=== PATIENT | male | born 1935 | race Caucasian/White ===

== ENCOUNTER → 2016-07-14 | Outpatient (CLI) | payer BC ==
[~2016-07-14] MED LIST: ACET-749 PO; ALPR0.25 PO; AMLO-114 PO; ASPEC81 PO; CHOL100010 PO; EFF/375 PO; FERR18TA2 PO; MOML PO; MULT-845 PO; PRLSR20 PO; TAMS0.4C59 PO; WARF1TAB PO
--- NOTE | 2016-07-14 14:40 | DIAGNOSTIC IMAGING REPORT ---
ANKLE BRACHIAL INDEX LIMITED CLINICAL HISTORY: LEG CRAMPING possible claudication COMPARISON STUDY: No previous studies for comparison. FINDINGS: Brachial arm systolic pressures are 174 mmHg in the right and 145 mmHg on the left. Posterior tibial pressures were 138 mm systolic on the right and 145 mm systolic on the left. Posterior tibial artery was noncompressible bilaterally. Digital pressures were 26 mmHg on the right and 27 mmHg on the left. IMPRESSION: 1. Ankle arm indices of 0.8 bilaterally 2. Diminished digital blood pressures of 26 mmHg on the right and 27 mmHg on the left Electronically signed by: Theo Milligan M.D. 07/14/2016 2:39 PM Dictated Date/Time: 07/14/2016 2:37 PM
== END | disposition home or self-care (01) ==
LOC: C.ULTR 13:02
PROVIDERS: ATTEND Internal Medicine
DX: R25.2 Cramp and spasm (principal)

== ENCOUNTER → 2016-08-08 | Outpatient (CLI) | payer BC ==
[2016-08-08 17:03] LABS: ALT/SGPT 25 U/L (12-78); AST/SGOT 16 U/L (15-37); BLOOD UREA NITROGEN 24 mg/dl (7-18); BUN/CREATININE RATIO 16.8 (10-20); CALCIUM 9.1 mg/dl (8.5-10.1); CARBON DIOXIDE 28 mmol/L (21-32); CHLORIDE 106 mmol/L (98-107); CHOLESTEROL 151 mg/dl (0-200); GLUCOSE 164 mg/dl (70-99); POTASSIUM 4.6 mmol/L (3.5-5.1); SODIUM 141 mmol/L (136-145); TRIGLYCERIDES 109 mg/dl (0-150); VERY LOW DENSITY LIPOPROT CALC 22 mg/dl
[2016-08-08 17:06] LABS: ALB/GLOB RATIO 1.3 (0.9-2); ALKALINE PHOSPHATASE 86 U/L (45-117); CHOLESTEROL/HDL RATIO 2.7; FERRITIN 336.4 ng/ml (8.0-388.0); HDL CHOLESTEROL 55 mg/dl; LDL CHOLESTEROL CALCULATED 74 mg/dl; TOTAL IRON BINDING CAPACITY 282 mcg/dl (250-450)
[2016-08-08 17:34] LABS: HEMATOCRIT 39.3 % (42-52); MEAN CELL VOLUME 100.5 fL (80-100); MEAN CORPUSCULAR HEMOGLOBIN 32.7 pg (25-34); MEAN CORPUSCULAR HGB CONC 32.6 g/dl (32-36); MEAN PLATELET VOLUME 12.2 fL (7.4-10.4); PLATELET COUNT 129 K/uL (130-400); RED BLOOD COUNT 3.91 M/uL (4.7-6.1); WHITE BLOOD COUNT 5.85 K/uL (4.8-10.8)
[2016-08-08 17:35] LABS: PLT ESTIMATE DECREASED
== END | disposition home or self-care (01) ==
LOC: C.LABBC 13:24
PROVIDERS: ATTEND Internal Medicine
DX: D50.9 Iron deficiency anemia, unspecified (principal); I10 Essential (primary) hypertension

== ENCOUNTER → 2017-08-28 | Outpatient (CLI) | payer BC ==
[2017-08-28 11:33] LABS: BASO % 0.2 %; BASO ABS # 0.01 K/uL (0-0.2); EOS % 2.1 %; EOS ABS # 0.12 K/uL (0-0.5); HEMATOCRIT 42.6 % (42-52); IG# 0.01 K/uL (0.00-0.02); LYMPH % 23.9 %; LYMPH ABS # 1.39 K/uL (1.2-3.4); MEAN CELL VOLUME 94.7 fL (80-100); MEAN CORPUSCULAR HEMOGLOBIN 33.3 pg (25-34); MEAN CORPUSCULAR HGB CONC 35.2 g/dl (32-36); MONO % 8.8 %; MONO ABS # 0.51 K/uL (0.11-0.59); NEUT % 64.8 %; NEUT ABS # 3.77 K/uL (1.4-6.5); PLATELET COUNT 149 K/uL (130-400); RED CELL DISTRIBUTION WIDTH CV 13.1 % (11.5-14.5); RED CELL DISTRIBUTION WIDTH SD 44.8 fL (36.4-46.3); WHITE BLOOD COUNT 5.81 K/uL (4.8-10.8)
[2017-08-28 12:10] LABS: ALBUMIN 3.6 gm/dl (3.4-5.0); ALKALINE PHOSPHATASE 91 U/L (45-117); ALT/SGPT 27 U/L (12-78); BLOOD UREA NITROGEN 22 mg/dl (7-18); CALCIUM 9.3 mg/dl (8.5-10.1); CARBON DIOXIDE 29 mmol/L (21-32); CHOLESTEROL 183 mg/dl (0-200); CREATININE 1.31 mg/dl (0.60-1.40); GLUCOSE 123 mg/dl (70-99); POTASSIUM 4.5 mmol/L (3.5-5.1); SODIUM 137 mmol/L (136-145)
[2017-08-28 12:15] LABS: AST/SGOT 18 U/L (15-37); LDL CHOLESTEROL CALCULATED 112 mg/dl; TOTAL PROTEIN 7.1 gm/dl (6.4-8.2)
== END | disposition home or self-care (01) ==
LOC: C.LABBC 07:59
PROVIDERS: ATTEND Internal Medicine
DX: I10 Essential (primary) hypertension (principal); D50.9 Iron deficiency anemia, unspecified; R73.9 Hyperglycemia, unspecified

== ENCOUNTER → 2017-08-30 | Outpatient (CLI) | payer BC ==
[2017-08-31 06:45] LABS: HEMOGLOBIN A1C 5.7 % (4.5-5.6)
== END | disposition home or self-care (01) ==
LOC: C.LABBFT 13:58
PROVIDERS: ATTEND Internal Medicine
DX: R73.9 Hyperglycemia, unspecified (principal)

== ENCOUNTER → 2017-09-01 | Outpatient (CLI) | payer BC ==
--- NOTE | 2017-09-01 13:27 | DIAGNOSTIC IMAGING REPORT ---
BILATERAL LOWER EXTREMITY ARTERIAL DOPPLER ULTRASOUND CLINICAL HISTORY: Peripheral artery disease. Claudication. COMPARISON STUDY: Bilateral ankle to brachial indices July 14, 2016. FINDINGS: Ankle to brachial indices could not be obtained due to noncompressibility of vessels. Abnormal waveforms are noted within the digits of each foot, more severe on the right. There is extensive atherosclerotic plaque within the right lower extremity and moderate plaque within the left lower extremity. Note is made of a markedly elevated peak systolic velocity of 498 cm/s within the right common femoral artery which represents a hemodynamically significant stenosis. There is an elevated peak systolic velocity of 254 cm/s within the proximal right superficial femoral artery which suggests an additional hemodynamically stiffness stenosis. Flow distal to the stenosis is markedly dampened and monophasic. There is dampened monophasic flow within the right popliteal, anterior tibial, posterior tibial and peroneal vessels. Elevated peak systolic velocity of 236 cm/second within the mid left superficial femoral artery suggests a hemodynamically significant stenosis. There is biphasic flow within left common femoral, superficial femoral and popliteal arteries with monophasic flow within the left anterior tibial, peroneal and dorsalis pedis vessels. The left posterior tibial artery was not visualized. IMPRESSION: 1. Extensive atherosclerotic plaque within the lower extremities, more severe on the right. Ankle to brachial indices could not be obtained due to noncompressibility of the vessels. Abnormal waveforms within the digits of each foot, more severe on the right. 2. Evidence for hemodynamically significant stenoses within the right common femoral artery and the bilateral superficial femoral arteries. 3. Markedly dampened, monophasic flow throughout the right lower extremity. Dampened, monophasic flow within the calf vessels of the left lower extremity with nonvisualization of flow with the left posterior tibial artery. Electronically signed by: Tom Barreto M.D. 09/01/2017 1:25 PM Dictated Date/Time: 09/01/2017 1:14 PM
== END | disposition home or self-care (01) ==
LOC: C.ULTR 11:53
PROVIDERS: ATTEND Internal Medicine
DX: I73.9 Peripheral vascular disease, unspecified (principal); R25.2 Cramp and spasm

== ENCOUNTER 2021-12-09 08:37 | Inpatient (IN) ==
--- NOTE | 2021-12-09 09:14 | Emergency Department Note ---
Impression & Plan CN III palsy, left eye, PVD (peripheral vascular disease), Diplopia, Thalamic stroke ED Provider Note NAME: IRAM CHOWDHURY AGE: 86 SEX: M : 1935 ARRIVES VIA: Walk-In INFORMANT: Patient, ED PROVIDER(S): Júnior Shay MD Chief Complaint: Double vision HPI: Patient presents due to concern for double vision. The patient states that he first noticed this on Monday. The patient does not have any history of prior TIA or stroke. Patient does have a remote history of A. fib currently anticoagulated on Eliquis has a pacemaker and does see Dr. Lopez. Patient states he is compliant with medications did take both his aspirin and Eliquis this morning. Patient denies any numbness tingling or focal weakness no slurred speech or facial droop. The patient does have some chronic ambulatory dysfunction after the patient did have vascular surgeries completed on his legs back in 2019. Patient denies any difficulty with breathing or swallowing. The patient does believe that his double vision is well horizontal diplopia and states he feels as though he can see out of his left eye better than his right. Patient relates that he believes he needs that his left eye is his dominant eye. The patient's gross vision is otherwise intact. No visual field deficits. ROS: See HPI for pertinent positives and negatives. A total of 10 systems were reviewed and otherwise negative. Past medical history: See below Surgical history: See below Social history: See below Physical Exam: GENERAL: Well appearing, well nourished, NAD, wearing glasses, wearing a mask, non-toxic. EYE EXAM: Normal conjunctiva. PERRL, no anisocoria, left eye with CN III palsy does not cross the midline when looking to the right and no reported visual field deficits NECK: Supple, no nuchal rigidity, no adenopathy, non-tender. No signs of meningismus. LUNGS: Clear to auscultation. Normal chest wall mechanics. HEART: NSR, ejection murmur noted. ABDOMEN: Abdomen soft, non-tender, normo-active bowel sounds, no masses, no rebo und or guarding. BACK: No CVA TTP. SKIN: No rashes and no bruising. UPPER EXTREMITIES: Upper extremities are grossly normal. LOWER EXTREMITIES: Grossly normal, no edema. NEURO EXAM: A&O x3, cranial nerves II-XII grossly intact with exception of left CN III, normal speech, moves all 4 extremities on command w/o issue. Good finger to nose, no drift, no sensory deficits. Differential diagnoses: Infection, dehydration, metabolic abnormality, hypo/hyperglycemia, electrolyte disturbance, anemia, hypoxia, cardiac sources, intracerebral event, toxicologic, neurologic, as well as other pathologies. Course: Patient was seen and evaluated the bedside. Full history physical exam was performed. EKG interpreted by me AV dual paced rhythm, rate of 70, prolonged TN and QRS Imaging Studies: See Below Cardiac monitoring: An order was placed for continuous cardiac monitoring. The monitor shows a rate of 72 with paced rhythm. MDM: Patient was seen due to concern for double vision the patient does have a left CN III palsy. Blood work was obtained along with CT head CT angiography of the head and neck. Patient is a normal white count H&H and platelet count. Kidney function is unremarkable with normal coags. BSG of 2 8 the patient is non-DKA. COVID-negative CT angiography of the head and neck showed mild to moderate areas of stenosis. No evidence of arterial occlusion dissection or aneurysm. CT head does show 9 mm hypodensity within the left internal capsule/anterior left thalamus. I did speak with Dr. Kramer who agreed with MRI if pacemaker compatible as well as echocardiogram. I did speak with the on-call hospitalist and patient was admitted by Dr. Blair. Patient is already on blood thinner, aspirin as well as statin medication Past Med/Surg History Medical History Anemia Atrial fibrillation ? BPH (benign prostatic hyperplasia) CAD (coronary artery disease) COPD with exacerbation Femoral artery stenosis, right Hearing deficit History of colon polyps Hyperlipidemia Hypertension Myocardial Infarction shown on an EKG, but never had symptom and had no idea he had it or when he had it On anticoagulant therapy eliquis PVD (peripheral vascular disease) Surgical History History of arthroscopy of left knee History of cataract surgery LEFT/RT History of colonoscopy History of endoscopic sinus surgery History of esophagogastroduodenoscopy (EGD) History of meniscectomy of left knee History of meniscectomy of right knee History of peripheral artery bypass right ileofemoral bypass graft with separate limbs to superficial and deep femoral arteries, [facility], Dr. Syed, 05/21/2018 History of strabismus surgery right History of tonsillectomy and adenoidectomy History of tooth extraction History of total left knee replacement (TKR) History of total right knee replacement (TKR) History of wisdom tooth extraction Status post femoral-popliteal bypass surgery (11/25/19) [facility], Dr Syed, femoral to above the knee popliteal bypass graft Family History Grandmother (Paternal) Family history of diabetes mellitus Father Family hx of colon cancer Colorectal cancer Myocardial infarction Prostate cancer Other No family history of adverse response to anesthesia Denies family history of Ovarian cancer Breast cancer Social History Smoking Status: Never smoker Tobacco Type: Cigarettes Second Hand Exposure: No; Do You Dip or Chew Tobacco: No; Tobacco Cessation Education Requested by Patient: No Hx Alcohol Use: Yes Alcohol type: hard liquor Hx Substance Use: No Preferred Language: Malawian Communication Ability: Effective Visual Impairment: Limited Hearing Ability: Use of Hearing Aid Street And Building Decorator Required: No Beliefs That Will Affect Care: None marital status: Current Living Situation: Spouse current occupational status: retired current occupation: Professor [employer] How many Children do You have: 2 Other Information That Helps Us Care for You: No Feels Safe at Home: Yes Safety Concerns: Feels Safe At This Time Childhood Exposure to Second-Hand Smoke: Yes caffeine: Yes (coffee in AM) during the past year weight has: remained stable Dental Care, Regularly: Yes Physical Activity Frequency: Daily Physical Activity Frequency Comment: 1 mile daily Seatbelt Use: always Sunscreen Use: Yes Assistive Devices: Glasses, Hearing Aid - Bilateral and Walker Allergies Allergies Allergy/AdvReac Type Severity Reaction Status Date / Time cilostazol AdvReac Mild increased Verified 11/05/21 14:29 heartrate Home Meds Home Medications Medication Instructions Recorded Confirmed apixaban 5 mg tablet (Eliquis) 5 mg PO BID 08/10/18 12/09/21 ferrous gluconate 324 mg (38 mg 324 mg PO QPM 08/10/18 12/09/21 iron) tablet amlodipine 5 mg tablet 5 mg PO DAILY 04/14/20 12/09/21 metoprolol succinate 50 mg 25 mg PO PM tab 11/05/21 12/09/21 tablet,extended release 24 hr rosuvastatin 5 mg tablet 5 mg PO HS 12/09/21 12/09/21 tamsulosin 0.4 mg capsule 0.4 mg PO HS 12/09/21 12/09/21 Previous Rx's Medication Instructions Recorded aspirin 81 mg tablet,delayed 81 mg PO DAILY #30 tab 12/03/19 release (Essence Low Dose Aspirin) cholecalciferol (vitamin D3) 25 25 mcg PO DAILY #30 tab 12/03/19 mcg (1,000 unit) tablet albuterol sulfate 90 mcg/actuation 2 puff INHALATION Q4 PRN #18 g 09/02/20 aerosol inhaler (ProAir HFA) losartan 25 mg tablet 25 mg PO DAILY #90 tab 05/25/21 budesonide-formoterol HFA 80 2 puff INHALATION BID #13.8 gm 10/11/21 mcg-4.5 mcg/actuation aerosol inhaler (Symbicort) omeprazole 20 mg capsule,delayed 20 mg PO DAILY #90 cap 11/11/21 release Results & Data (ED) Vital Signs Vital Signs - 24 hr 12/09/21 08:40 12/09/21 09:26 12/09/21 09:30 Temperature 36.5 C Temperature Source Oral Pulse Rate 70 Pulse Rate [Apical] 70 Pulse Rate from SpO2 Sensor Pulse Rhythm Regular Pulse Rhythm [Apical] Regular Pulse Strength Normal Pulse Strength [Apical] Normal Respiratory Rate 18 20 Respiratory Effort / Characteristics Non-Labored Spontaneous Non-Labored Spontaneous Respiratory Depth Normal Normal Respiratory Pattern Regular Regular Blood Pressure 201/95 H 163/101 H Blood Pressure [Left Arm] 207/86 H Blood Pressure Mean 130 121 Blood Pressure Mean [Left Arm] 126 Blood Pressure Position Sitting Blood Pressure Position [Left Arm] Sitting Pulse Oximetry 98 97 Oxygen Delivery Method Room Air Sepsis Recent Fever Within 48 Hours No Sepsis New/Unexplained Change in Mental Status No Sepsis Action Taken by Nursing No Action Required 12/09/21 09:32 12/09/21 09:40 12/09/21 10:00 Temperature Temperature Source Pulse Rate 86 70 70 Pulse Rate [Apical] Pulse Rate from SpO2 Sensor 70 70 Pulse Rhythm Regular Pulse Rhythm [Apical] Pulse Strength Pulse Strength [Apical] Respiratory Rate 20 22 20 Respiratory Effort / Characteristics Respiratory Depth Respiratory Pattern Blood Pressure Blood Pressure [Left Arm] Blood Pressure Mean Blood Pressure Mean [Left Arm] Blood Pressure Position Blood Pressure Position [Left Arm] Pulse Oximetry 97 98 96 Oxygen Delivery Method Room Air Sepsis Recent Fever Within 48 Hours Sepsis New/Unexplained Change in Mental Status Sepsis Action Taken by Nursing 12/09/21 10:01 12/09/21 11:00 12/09/21 11:14 Temperature Temperature Source Pulse Rate 70 Pulse Rate [Apical] 70 Pulse Rate from SpO2 Sensor 70 Pulse Rhythm Pulse Rhythm [Apical] Regular Pulse Strength Pulse Strength [Apical] Normal Respiratory Rate 12 18 Respiratory Effort / Characteristics Non-Labored Spontaneous Respiratory Depth Normal Respiratory Pattern Regular Blood Pressure 206/76 H 180/89 H Blood Pressure [Left Arm] 206/76 H Blood Pressure Mean 119 119 Blood Pressure Mean [Left Arm] 119 Blood Pressure Position Blood Pressure Position [Left Arm] Sitting Pulse Oximetry 97 97 Oxygen Delivery Method Room Air Sepsis Recent Fever Within 48 Hours Sepsis New/Unexplained Change in Mental Status Sepsis Action Taken by Nursing 12/09/21 11:30 12/09/21 12:00 12/09/21 12:05 Temperature Temperature Source Pulse Rate 70 70 70 Pulse Rate [Apical] Pulse Rate from SpO2 Sensor 70 Pulse Rhythm Pulse Rhythm [Apical] Pulse Strength Pulse Strength [Apical] Respiratory Rate 10 L 19 21 Respiratory Effort / Characteristics Respiratory Depth Respiratory Pattern Blood Pressure 191/83 H 232/110 H 224/104 H Blood Pressure [Left Arm] Blood Pressure Mean 119 150 144 Blood Pressure Mean [Left Arm] Blood Pressure Position Blood Pressure Position [Left Arm] Pulse Oximetry 96 Oxygen Delivery Method Sepsis Recent Fever Within 48 Hours Sepsis New/Unexplained Change in Mental Status Sepsis Action Taken by Jail Medications Current Medication List: was personally reviewed by me Laboratory Data Attestation: I reviewed the patient's lab results. Result diagrams: 12/09/21 09:09 12/09/21 09:09 Lab Results 12/09/21 12/09/21 12/09/21 Range/Units 09:09 09:09 09:09 WBC 5.14 (4.8-10.8) K/ul RBC 4.42 L (4.63-6.08) M/uL Hgb 14.3 (14.0-18.0) g/dl Hct 41.8 (40.1-51.0) % MCV 94.6 (80.0-100.0) fL MCH 32.4 (25.0-34.0) pg MCHC 34.2 (32.0-36.0) g/dL RDW Std Deviation 43.5 (36.4-46.3) fL RDW Coeff of Ching 12.6 (11.5-14.5) % Plt Count 136 (130-400) K/uL MPV 11.3 (9.4-12.4) fL Immature Gran % (Auto) 0.2 % Neut % (Auto) 72.3 % Lymph % (Auto) 15.9 % [place] % (Auto) 9.2 % Eos % (Auto) 2.2 % Baso % (Auto) 0.2 % Neut # (Auto) 3.69 (1.4-6.5) K/uL Lymph # (Auto) 0.81 L (1.2-3.4) K/uL [place] # (Auto) 0.47 (0.24-0.82) K/uL Eos # (Auto) 0.11 (0-0.50) K/uL Baso # (Auto) 0.01 (0-0.2) K/uL Immature Gran # (Auto) 0.01 (0.00-0.02) K/uL PT 11.5 (9.0-12.0) Seconds INR 1.1 (0.9-1.1) APTT 28.3 (21.0-31.0) Seconds PTT Ratio 1.0 Sodium 139 (136-145) mmol/L Potassium 4.5 (3.5-5.1) mmol/L Chloride 107 (98-107) mmol/L Carbon Dioxide 25 (21-32) mmol/L Anion Gap 7 (3-11) BUN 15 (6-23) mg/dl Creatinine 1.09 (0.6-1.4) mg/dl Est Cr Clr Drug Dosing 47.7 ml/min Est GFR ( Amer) 71.9 ml/min Est GFR (Non-Af Amer) 62.0 ml/min BUN/Creatinine Ratio 13.8 (10-20) Glucose 208 H (70-99(Fasting)) mg/dl Calcium 9.5 (8.5-10.1) mg/dl Magnesium 1.7 (1.7-2.4) mg/dl Total Bilirubin 0.6 (0.2-1.0) mg/dl AST 31 (13-39) U/L ALT 34 (7-52) U/L Alkaline Phosphatase 75 (34-104) U/L Troponin I High Sens (0-20) pg/ml Total Protein 6.6 (6.0-8.3) gm/dl Albumin 3.8 (3.4-5.0) gm/dl Globulin 2.8 (2.5-4.0) gm/dl Albumin/Globulin Ratio 1.4 (0.9-2) SARS-CoV-2, RNA, NAAT (NEGATIVE) 12/09/21 12/09/21 Range/Units 09:09 10:15 WBC (4.8-10.8) K/ul RBC (4.63-6.08) M/uL Hgb (14.0-18.0) g/dl Hct (40.1-51.0) % MCV (80.0-100.0) fL MCH (25.0-34.0) pg MCHC (32.0-36.0) g/dL RDW Std Deviation (36.4-46.3) fL RDW Coeff of Ching (11.5-14.5) % Plt Count (130-400) K/uL MPV (9.4-12.4) fL Immature Gran % (Auto) % Neut % (Auto) % Lymph % (Auto) % [place] % (Auto) % Eos % (Auto) % Baso % (Auto) % Neut # (Auto) (1.4-6.5) K/uL Lymph # (Auto) (1.2-3.4) K/uL [place] # (Auto) (0.24-0.82) K/uL Eos # (Auto) (0-0.50) K/uL Baso # (Auto) (0-0.2) K/uL Immature Gran # (Auto) (0.00-0.02) K/uL PT (9.0-12.0) Seconds INR (0.9-1.1) APTT (21.0-31.0) Seconds PTT Ratio Sodium (136-145) mmol/L Potassium (3.5-5.1) mmol/L Chloride (98-107) mmol/L Carbon Dioxide (21-32) mmol/L Anion Gap (3-11) BUN (6-23) mg/dl Creatinine (0.6-1.4) mg/dl Est Cr Clr Drug Dosing ml/min Est GFR ( Amer) ml/min Est GFR (Non-Af Amer) ml/min BUN/Creatinine Ratio (10-20) Glucose (70-99(Fasting)) mg/dl Calcium (8.5-10.1) mg/dl Magnesium (1.7-2.4) mg/dl Total Bilirubin (0.2-1.0) mg/dl AST (13-39) U/L ALT (7-52) U/L Alkaline Phosphatase (34-104) U/L Troponin I High Sens 9.6 (0-20) pg/ml Total Protein (6.0-8.3) gm/dl Albumin (3.4-5.0) gm/dl Globulin (2.5-4.0) gm/dl Albumin/Globulin Ratio (0.9-2) SARS-CoV-2, RNA, NAAT NEGATIVE (NEGATIVE) Administered Medications Discontinued Medications Ioversol (Optiray 320 125ml) 120 ml IV ONCE ONE Stop: 12/09/21 10:27 Last Admin: 12/09/21 10:26 Dose: 120 ml Documented by: [id number] Labetalol HCl (Labetalol Hcl Iv 5 Mg/Ml 20ml) 10 mg IV Q30M PRN PRN Reason: sBP >= 220, dBP >=120 Stop: 01/08/22 13:14 Last Admin: 12/09/21 13:34 Dose: 10 mg Documented by: [id number] Cosigned by: [id number] Imaging Data Radiologist's Impression: Chest X-Ray 12/09/21 09:29 XR chest 1V portable HISTORY: Stroke symptoms. COMPARISON: Chest 07/10/2013. FINDINGS: A few small linear density at the left lung base suggesting subsegmental atelectasis or scarring. Otherwise, lungs are clear. The heart is normal in size. No pleural effusions. No pneumothorax. Is left-sided dual- chamber pacemaker. Small left basilar nodular density favors a nipple shadow. IMPRESSION: No acute process. ACT 112: Negative or not required by law. Electronically signed by: Gaurang Dyson M.D. 12/09/2021 10:[address] 12/09/21 09:45 CT OF THE HEAD WITHOUT CONTRAST CLINICAL HISTORY: Stroke Like Symptoms COMPARISON STUDY: Head CT March 17, 2020. TECHNIQUE: Helical axial images of the head were obtained without IV contrast. Automated exposure control was utilized for the study. A dose lowering technique was utilized adhering to the principles of ALARA. FINDINGS: No acute intracranial hemorrhage, midline shift or mass effect is present. White matter hypodensity suggests small vessel disease. 9 mm hypodensity within the left internal capsule/anterior left thalamus is new since head CT of March 17, 2020. Otherwise, unchanged appearance of the brain. The ventricular system is unremarkable. The basal cisterns are patent. No extra- axial collections are present. There are no findings to suggest acute dural sinus thrombosis or acute territorial infarct. No significant calvarial abnormalities are present. Postoperative findings within the sinuses are noted. IMPRESSION: 1. No acute intracranial hemorrhage or mass effect. 2. 9 mm hypodensity within left internal capsule/anterior left thalamus. This suggests age indeterminate ischemia but is new since CT of March 17, 2020. Otherwise, no change in appearance of the brain. ACT 112: Negative or not required by law. Electronically signed by: Tom Barreto M.D. 12/09/2021 10:39 AM Head CTA 12/09/21 09:45 HEAD & NECK CTA HISTORY: Dizziness. Stroke Like Symptoms TECHNIQUE: Multiaxial CT images of the head were performed following the intravenous administration of contrast to evaluate the major cerebral vessels. Multiaxial CT images of the neck were also performed following the intravenous administration of contrast to evaluate the major cervical vessels. Maximum intensity projection images were also obtained. A dose lowering technique was utilized adhering to the principles of ALARA. COMPARISON: Head CT 03/17/2020. FINDINGS: There is no mass, hematoma, midline shift, or acute infarct. Moderate calcified plaque within the distal bilateral vertebral arteries and bilateral carotid siphons. This results in moderate stenosis of approximately 50% within the distal vertebral arteries and supraclinoid segments of the bilateral ICAs. There is mild multifocal narrowing within the basilar artery. Mild multifocal narrowing within the mid to distal left ELIGIBILITY COUNSELOR. The right ELIGIBILITY COUNSELOR is widely patent. Hypoplastic left A1 segment. However, no significant stenosis, occlusion, or aneurysm within the bilateral ACAs are MCAs. The major dural venous sinuses appear patent. The aortic arch and proximal great vessels are widely patent. There is moderate calcified plaque within the aortic arch and proximal great vessels. Mild to moderate focal narrowing within the takeoff of the right subclavian artery due to the calcified plaque. Moderate to severe stenosis at the takeoff of the bilateral vertebral arteries due to the calcified plaque. The remaining bilateral cervical vertebral arteries are widely patent. There is moderate to severe calcified plaque within the distal bilateral common carotid arteries, bilateral carotid bifurcations, and proximal bilateral internal carotid arteries. This results in 50% focal stenosis within the distal left common carotid artery. There is no central venous stenosis within the right common carotid artery. Approximately 30% focal stenosis within the proximal right internal carotid artery and up to 50% focal stenosis within the proximal left internal carotid artery due to the calcified plaque. Mild emphysema is noted. There is a left-sided pacemaker. Moderate degenerative changes within the cervical spine. IMPRESSION: 1. Mild to moderate areas of stenosis within the major cerebral and cervical arteries as described above. 2. However, no evidence for arterial occlusion, dissection, or aneurysm within the cerebral or cervical arteries. ACT 112: Negative or not required by law. Electronically signed by: Gaurang Dyson M.D. 12/09/2021 11:00 AM Neck CTA 12/09/21 09:45 HEAD & NECK CTA HISTORY: Dizziness. Stroke Like Symptoms TECHNIQUE: Multiaxial CT images of the head were performed following the intravenous administration of contrast to evaluate the major cerebral vessels. Multiaxial CT images of the neck were also performed following the intravenous administration of contrast to evaluate the major cervical vessels. Maximum intensity projection images were also obtained. A dose lowering technique was utilized adhering to the principles of ALARA. COMPARISON: Head CT 03/17/2020. FINDINGS: There is no mass, hematoma, midline shift, or acute infarct. Moderate calcified plaque within the distal bilateral vertebral arteries and bilateral carotid siphons. This results in moderate stenosis of approximately 50% within the distal vertebral arteries and supraclinoid segments of the bilateral ICAs. There is mild multifocal narrowing within the basilar artery. Mild multifocal narrowing within the mid to distal left ELIGIBILITY COUNSELOR. The right ELIGIBILITY COUNSELOR is widely patent. Hypoplastic left A1 segment. However, no significant stenosis, occlusion, or aneurysm within the bilateral ACAs are MCAs. The major dural venous sinuses appear patent. The aortic arch and proximal great vessels are widely patent. There is moderate calcified plaque within the aortic arch and proximal great vessels. Mild to moderate focal narrowing within the takeoff of the right subclavian artery due to the calcified plaque. Moderate to severe stenosis at the takeoff of the bilateral vertebral arteries due to the calcified plaque. The remaining bilateral cervical vertebral arteries are widely patent. There is moderate to severe calcified plaque within the distal bilateral common carotid arteries, bilateral carotid bifurcations, and proximal bilateral internal carotid ar teries. This results in 50% focal stenosis within the distal left common carotid artery. There is no central venous stenosis within the right common carotid artery. Approximately 30% focal stenosis within the proximal right internal carotid artery and up to 50% focal stenosis within the proximal left internal carotid artery due to the calcified plaque. Mild emphysema is noted. There is a left-sided pacemaker. Moderate degenerative changes within the cervical spine. IMPRESSION: 1. Mild to moderate areas of stenosis within the major cerebral and cervical a rteries as described above. 2. However, no evidence for arterial occlusion, dissection, or aneurysm within the cerebral or cervical arteries. ACT 112: Negative or not required by law. Electronically signed by: Gaurang Dyson M.D. 12/09/2021 11:00 AM Discharge Plan Visit Data Chief Complaint: Eye Problems Stated Complaint: DOUBLE VISION, R EYE PROBLEMS ED Provider: Júnior Shay Discharge Problem: CN III palsy, left eye, PVD (peripheral vascular disease), Diplopia, Thalamic stroke Patient Disposition: Admitted As Inpatient Discharge Instructions Interventions: ED Discharge Assessment Last Done: 12/09/21 14:44
[2021-12-09 09:58] LABS: Albumin Globulin Ratio 1.4 (0.9-2); Albumin Level 3.8 gm/dl (3.4-5.0); BUN Creatinine Ratio 13.8 (10-20); Bilirubin,Total 0.6 mg/dl (0.2-1.0); Calcium 9.5 mg/dl (8.5-10.1); Creatinine Clr Calc Pharmacy 47.7 ml/min; Est GFR (African American) 71.9 ml/min; Globulin 2.8 gm/dl (2.5-4.0); Magnesium 1.7 mg/dl (1.7-2.4); Potassium 4.5 mmol/L (3.5-5.1); Total Protein 6.6 gm/dl (6.0-8.3)
[2021-12-09 10:02] LABS: INR 1.1 (0.9-1.1); Partial Thromboplastin Time 28.3 Seconds (21.0-31.0); Prothrombin Time 11.5 Seconds (9.0-12.0)
[2021-12-09 10:17] LABS: Hematocrit (blood only) 41.8 % (40.1-51.0); Hemoglobin 14.3 g/dl (14.0-18.0); Mean Corpuscular Hemoglobin 32.4 pg (25.0-34.0); Mean Corpuscular Hgb Conc 34.2 g/dL (32.0-36.0); Mean Corpuscular Volume 94.6 fL (80.0-100.0); Mean Platelet Volume 11.3 fL (9.4-12.4); Platelet Count 136 K/uL (130-400); RDW Coefficient of Variation 12.6 % (11.5-14.5); RDW Standard Deviation 43.5 fL (36.4-46.3); Red Blood Count 4.42 M/uL (4.63-6.08); White Blood Count 5.14 K/ul (4.8-10.8)
--- NOTE | 2021-12-09 10:23 | XRay Report ---
XR chest 1V portable HISTORY: Stroke symptoms. COMPARISON: Chest 07/10/2013. FINDINGS: A few small linear density at the left lung base suggesting subsegmental atelectasis or sca rring. Otherwise, lungs are clear. The heart is normal in size. No pleural effusions. No pneumothorax . Is left-sided dual-chamber pacemaker. Small left basilar nodular density favors a nipple shadow. IMPRESSION: No acute process. ACT 112: Negative or not required by law. Electronically signed by: Gaurang Dyson M.D. 12/09/2021 10:22 AM
[2021-12-09] MEDS ORDERED: OPTIRAY 320 125ml IV ONE (10:26)
--- NOTE | 2021-12-09 10:41 | CT Scan Report ---
CT OF THE HEAD WITHOUT CONTRAST CLINICAL HISTORY: Stroke Like Symptoms COMPARISON STUDY: Head CT March 17, 2020. TECHNIQUE: Helical axial images of the head were obtained without IV contrast. Automated exposure con trol was utilized for the study. A dose lowering technique was utilized adhering to the principles o f ALARA. FINDINGS: No acute intracranial hemorrhage, midline shift or mass effect is present. White matter hyp odensity suggests small vessel disease. 9 mm hypodensity within the left internal capsule/anterior le ft thalamus is new since head CT of March 17, 2020. Otherwise, unchanged appearance of the brain. T he ventricular system is unremarkable. The basal cisterns are patent. No extra-axial collections are present. There are no findings to suggest acute dural sinus thrombosis or acute territorial infarct. No significant calvarial abnormalities are present. Postoperative findings within the sinuses are not ed. IMPRESSION: 1. No acute intracranial hemorrhage or mass effect. 2. 9 mm hypodensity within left internal capsule/anterior left thalamus. This suggests age indetermin ate ischemia but is new since CT of March 17, 2020. Otherwise, no change in appearance of the brain . ACT 112: Negative or not required by law. Electronically signed by: Tom Barreto M.D. 12/09/2021 10:39 AM
--- NOTE | 2021-12-09 11:01 | CT Scan Report ---
HEAD & NECK CTA HISTORY: Dizziness. Stroke Like Symptoms TECHNIQUE: Multiaxial CT images of the head were performed following the intravenous administration o f contrast to evaluate the major cerebral vessels. Multiaxial CT images of the neck were also perform ed following the intravenous administration of contrast to evaluate the major cervical vessels. Maxim um intensity projection images were also obtained. A dose lowering technique was utilized adhering to the principles of ALARA. COMPARISON: Head CT 03/17/2020. FINDINGS: There is no mass, hematoma, midline shift, or acute infarct. Moderate calcified plaque within the dis stuart bilateral vertebral arteries and bilateral carotid siphons. This results in moderate stenosis of approximately 50% within the distal vertebral arteries and supraclinoid segments of the bilateral ICA s. There is mild multifocal narrowing within the basilar artery. Mild multifocal narrowing within the mid to distal left LINE CAMERA OPERATOR. The right LINE CAMERA OPERATOR is widely patent. Hypoplastic left A1 segment. However, no sig nificant stenosis, occlusion, or aneurysm within the bilateral ACAs are MCAs. The major dural venous sinuses appear patent. The aortic arch and proximal great vessels are widely patent. There is moderate calcified plaque wi thin the aortic arch and proximal great vessels. Mild to moderate focal narrowing within the takeoff of the right subclavian artery due to the calcified plaque. Moderate to severe stenosis at the takeof f of the bilateral vertebral arteries due to the calcified plaque. The remaining bilateral cervical v ertebral arteries are widely patent. There is moderate to severe calcified plaque within the distal b ilateral common carotid arteries, bilateral carotid bifurcations, and proximal bilateral internal car otid arteries. This results in 50% focal stenosis within the distal left common carotid artery. There is no central venous stenosis within the right common carotid artery. Approximately 30% focal stenos is within the proximal right internal carotid artery and up to 50% focal stenosis within the proximal left internal carotid artery due to the calcified plaque. Mild emphysema is noted. There is a left-s ided pacemaker. Moderate degenerative changes within the cervical spine. IMPRESSION: 1. Mild to moderate areas of stenosis within the major cerebral and cervical arteries as described ab ove. 2. However, no evidence for arterial occlusion, dissection, or aneurysm within the cerebral or cervic al arteries. ACT 112: Negative or not required by law. Electronically signed by: Gaurang Dyson M.D. 12/09/2021 11:00 AM
[2021-12-09 11:32] LABS: Basophils # (auto) 0.01 K/uL (0-0.2); Basophils % (auto) 0.2 %; Eosinophils # (auto) 0.11 K/uL (0-0.50); Eosinophils % (auto) 2.2 %; Immature Granulocytes # (auto) 0.01 K/uL (0.00-0.02); Immature Granulocytes % (auto) 0.2 %; Lymphocytes # (auto) 0.81 K/uL (1.2-3.4); Lymphocytes % (auto) 15.9 %; Monocytes # (auto) 0.47 K/uL (0.24-0.82); Monocytes % (auto) 9.2 %; Neutrophils # (auto) 3.69 K/uL (1.4-6.5); Neutrophils % (auto) 72.3 %
--- NOTE | 2021-12-09 12:13 | History & Physical Report ---
Date of Service December 09, 2021 Assessment & Plan (1) Thalamic stroke: Plan: Mild left arm weakness and reduced co-ordination, left eye inward movement deficit Already taking ASA, Eliquis and rosuvastatin. Can increase rosuvastatin back to 20mg PO daily but given possible side effect of worsening ambulation 5mg may be the maximum he can end up taking BP maximum 232/103 in the ER. Will start Labetalol 10mg q30 mins for sBP >= 220 or dBP >=120 although given CVA 2 suspected 2 days ago suspect we can aim a little lower if persistently elevated one the loo. Stroke scale daily and PRN TTE Lipid panel and HbA1C with AM labs PT/OT/Speech evals Consult neurology - already under [facility] neurology (2) Diplopia: Plan: Secondary to thalamic stroke as above. Follow up with ophthalmology as outpatient (3) Hypertension: Plan: Given current hypertension with maximum BP 232/103 and 2 days out from CVA while taking his usual medications will continue all his usual medications at this stage. Continue amlodipine 5mg PO daily, metoprolol succinate 25mg PO HS and losartan 25mg PO daily Labetalol PRN as above (4) COPD (chronic obstructive pulmonary disease): Plan: Continue Symbicort 2 puffs BID or hospital formulary equivalent. He reports this is not well controlled at home and coughing frequently while also taking albuterol twice a day regularly although this is not acute. Advised to stop taking the albuterol regularly and will start on Spiriva. (5) Hypercholesteremia: Plan: Increase rosuvastatin to 20mg as above. (6) Moderate aortic stenosis: Plan: Monitored by Dr Ritchie (7) Peripheral artery disease: Plan: s/p right fem above the knee bypass 11/23/2019 Continue ASA, Eliquis and rosuvastatin as above (8) Paroxysmal atrial fibrillation: Plan: Currently in AV paced rhythm Continue Eliquis for anticoagulation Continue metoprolol for rate control - notably did very poorly with diltiazem in the past. Plan: VTE Prophylaxis - Eliquis Diet - heart healthy Disposition - admit to PCU Admission and Anticipated Discharge Date Admission Date: December 09, 2021 History of Present Illness Chief Complaint: Diplopia Primary Care Provider: VANCE Bill 86 year old male who presents to the ER with 2 days of double vision with associated vertigo. He comes in today because it was not getting better and his noticed his eyes going in opposite directions. 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 No weakness or change in sensation in all 4 extremities. No change in hearing (chronic hearing aids) or voice. He has known extensive vascular disease with femoral bypass in 2019. No known history of stroke or heart attack but has presumed coronary artery disease per his cardiology note. He takes Eliquis and aspirin and reportedly has been taking these without missing any doses. He used to take a higher dose rosuvastatin 5mg PO daily however this was reduced about a year ago down to 5mg due to fatigue in his legs while walking which appeared to help. In the ER CT head was concerning for 9mm hypodensity within the left internal capsule / anterior left thalamus which is age indeterminate but new since CT in 2019. He was referred to medicine for admission and ongoing management of stroke. BP maximum in the ER 232/103 - he denies any headache or worsening symptoms since 2 days ago. Allergies Allergy/AdvReac Type Severity Reaction Status Date / Time cilostazol AdvReac Mild increased Verified 11/05/21 14:29 heartrate Home Medications Medication Instructions Recorded Confirmed Type apixaban 5 mg tablet (Eliquis) 5 mg PO BID 08/10/18 12/09/21 History ferrous gluconate 324 mg (38 mg 324 mg PO QPM 08/10/18 12/09/21 History iron) tablet aspirin 81 mg tablet,delayed 81 mg PO DAILY #30 tab 12/03/19 12/09/21 Rx release (Essence Low Dose Aspirin) cholecalciferol (vitamin D3) 25 25 mcg PO DAILY #30 tab 12/03/19 12/09/21 Rx mcg (1,000 unit) tablet amlodipine 5 mg tablet 5 mg PO DAILY 04/14/20 12/09/21 History albuterol sulfate 90 mcg/actuation 2 puff INHALATION Q4 PRN #18 g 09/02/20 12/09/21 Rx aerosol inhaler (ProAir HFA) losartan 25 mg tablet 25 mg PO DAILY #90 tab 05/25/21 12/09/21 Rx budesonide-formoterol HFA 80 2 puff INHALATION BID #13.8 gm 10/11/21 12/09/21 Rx mcg-4.5 mcg/actuation aerosol inhaler (Symbicort) metoprolol succinate 50 mg 25 mg PO PM tab 11/05/21 12/09/21 History tablet,extended release 24 hr omeprazole 20 mg capsule,delayed 20 mg PO DAILY #90 cap 11/11/21 12/09/21 Rx release rosuvastatin 5 mg tablet 5 mg PO HS 12/09/21 12/09/21 History tamsulosin 0.4 mg capsule 0.4 mg PO HS 12/09/21 12/09/21 History Past Med/Surg History Medical History Anemia Atrial fibrillation ? BPH (benign prostatic hyperplasia) CAD (coronary artery disease) COPD with exacerbation Femoral artery stenosis, right Hearing deficit History of colon polyps Hyperlipidemia Hypertension Myocardial Infarction shown on an EKG, but never had symptom and had no idea he had it or when he had it On anticoagulant therapy eliquis PVD (peripheral vascular disease) Surgical History History of arthroscopy of left knee History of cataract surgery LEFT/RT History of colonoscopy History of endoscopic sinus surgery History of esophagogastroduodenoscopy (EGD) History of meniscectomy of left knee History of meniscectomy of right knee History of peripheral artery bypass right ileofemoral bypass graft with separate limbs to superficial and deep femoral arteries, [facility], Dr. Syed, 05/21/2018 History of strabismus surgery right History of tonsillectomy and adenoidectomy History of tooth extraction History of total left knee replacement (TKR) History of total right knee replacement (TKR) History of wisdom tooth extraction Status post femoral-popliteal bypass surgery (11/25/19) [facility], Dr Syed, femoral to above the knee popliteal bypass graft Family History Grandmother (Paternal) Family history of diabetes mellitus Father Family hx of colon cancer Colorectal cancer Myocardial infarction Prostate cancer Other No family history of adverse response to anesthesia Denies family history of Ovarian cancer Breast cancer Social History Smoking Status: Never smoker Tobacco Type: Cigarettes Second Hand Exposure: No; Do You Dip or Chew Tobacco: No; Tobacco Cessation Education Requested by Patient: No Hx Alcohol Use: Yes Alcohol type: hard liquor Hx Substance Use: No Preferred Language: Guamanian Communication Ability: Effective Visual Impairment: Limited Hearing Ability: Use of Hearing Aid Peoplesoft Functional Analyst Required: No Beliefs That Will Affect Care: None marital status: Current Living Situation: Spouse current occupational status: retired current occupation: Professor [employer] How many Children do You have: 2 Other Information That Helps Us Care for You: No Feels Safe at Home: Yes Safety Concerns: Feels Safe At This Time Childhood Exposure to Second-Hand Smoke: Yes caffeine: Yes (coffee in AM) during the past year weight has: remained stable Dental Care, Regularly: Yes Physical Activity Frequency: Daily Physical Activity Frequency Comment: 1 mile daily Seatbelt Use: always Sunscreen Use: Yes Assistive Devices: Glasses, Hearing Aid - Bilateral and Walker Review of Systems Review of Systems: All systems reviewed & are unremarkable except as noted in HPI & below Physical Exam Constitutional: WD/WN, vitals as above Eyes: PERRL; + EOM not intact Diplopia which resolves with unilateral vision on both sides. Diplopia worse on rightward gaze and left eye unable to move right laterally past midline, rests down and out. EOMI on left eye unilaterally. Neck: trachea midline, no thyromegaly Respiratory: normal respiratory effort, lungs clear to auscultation Cardiovascular: Rate/Rhythm: regular rate and regular rhythm Heart Sounds: + murmur (throughout, loudest in RUSB) Vessels: no JVD Extremities: normal capillary refill; no calf tenderness and no pedal edema Gastrointestinal (Abdomen): normal bowel sounds, soft, nontender, no hepatosplenomegaly Skin: no rashes, warm and dry Neurologic: moves all extremities and awake; not confused Speech / Cognition: normal speech Motor/Sensory: + pronator drift (mild on left); no tremor Cranial Nerves: PERRL, normal accommodation, normal facial strength, able to rotate head bilaterally, able to elevate shoulders bilaterally, no nystagmus and symmetric palate elevation; + EOM not intact (see above) and + hearing impairment (chronic hearing aids no worse than his normal) Coordination: + abnormal izwxuq-uz-cwzz test (increased difficulty on left side); normal ryad-am-hhci test Psychiatric: A+Ox3, euthymic affect Results & Data Results & Data ([place]) Vital Signs (Past 12 Hours) Vital Signs Temp Pulse Pulse Resp BP BP Pulse Ox 12/09/21 11:14 70 18 206/76 H 97 12/09/21 09:32 86 20 97 12/09/21 09:26 70 20 207/86 H 97 12/09/21 08:40 36.5 C 70 18 201/95 H 98 Laboratory Results Abnormal lab results 12/09/21 12/09/21 Range/Units 09:09 09:09 RBC 4.42 L (4.63-6.08) M/uL Lymph # (Auto) 0.81 L (1.2-3.4) K/uL Glucose 208 H (70-99(Fasting)) mg/dl Diagnostic Findings XR chest 1V portable HISTORY: Stroke symptoms. COMPARISON: Chest 07/10/2013. FINDINGS: A few small linear density at the left lung base suggesting subsegmental atelectasis or scarring. Otherwise, lungs are clear. The heart is normal in size. No pleural effusions. No pneumothorax. Is left-sided dual- chamber pacemaker. Small left basilar nodular density favors a nipple shadow. IMPRESSION: No acute process. CT OF THE HEAD WITHOUT CONTRAST CLINICAL HISTORY: Stroke Like Symptoms COMPARISON STUDY: Head CT March 17, 2020. TECHNIQUE: Helical axial images of the head were obtained without IV contrast. Automated exposure control was utilized for the study. A dose lowering technique was utilized adhering to the principles of ALARA. FINDINGS: No acute intracranial hemorrhage, midline shift or mass effect is present. White matter hypodensity suggests small vessel disease. 9 mm hypodensity within the left internal capsule/anterior left thalamus is new since head CT of March 17, 2020. Otherwise, unchanged appearance of the brain. The ventricular system is unremarkable. The basal cisterns are patent. No extra- axial collections are present. There are no findings to suggest acute dural sinus thrombosis or acute territorial infarct. No significant calvarial abnormalities are present. Postoperative findings within the sinuses are noted. IMPRESSION: 1. No acute intracranial hemorrhage or mass effect. 2. 9 mm hypodensity within left internal capsule/anterior left thalamus. This suggests age indeterminate ischemia but is new since CT of March 17, 2020. Otherwise, no change in appearance of the brain. HEAD & NECK CTA HISTORY: Dizziness. Stroke Like Symptoms TECHNIQUE: Multiaxial CT images of the head were performed following the intravenous administration of contrast to evaluate the major cerebral vessels. Multiaxial CT images of the neck were also performed following the intravenous administration of contrast to evaluate the major cervical vessels. Maximum intensity projection images were also obtained. A dose lowering technique was utilized adhering to the principles of ALARA. COMPARISON: Head CT 03/17/2020. FINDINGS: There is no mass, hematoma, midline shift, or acute infarct. Moderate calcified plaque within the distal bilateral vertebral arteries and bilateral carotid siphons. This results in moderate stenosis of approximately 50% within the distal vertebral arteries and supraclinoid segments of the bilateral ICAs. There is mild multifocal narrowing within the basilar artery. Mild multifocal narrowing within the mid to distal left PRODUCT DEVELOPMENT ENGINEER. The right PRODUCT DEVELOPMENT ENGINEER is widely patent. Hypoplastic left A1 segment. However, no significant stenosis, occlusion, or aneurysm within the bilateral ACAs are MCAs. The major dural venous sinuses appear patent. The aortic arch and proximal great vessels are widely patent. There is moderate calcified plaque within the aortic arch and proximal great vessels. Mild to moderate focal narrowing within the takeoff of the right subclavian artery due to the calcified plaque. Moderate to severe stenosis at the takeoff of the bilateral vertebral arteries due to the calcified plaque. The remaining bilateral cervical vertebral arteries are widely patent. There is moderate to severe calcified plaque within the distal bilateral common carotid arteries, bilateral carotid bifurcations, and proximal bilateral internal carotid arteries. This results in 50% focal stenosis within the distal left common carotid artery. There is no central venous stenosis within the right common carotid artery. Approximately 30% focal stenosis within the proximal right internal carotid artery and up to 50% focal stenosis within the proximal left internal carotid artery due to the calcified plaque. Mild emphysema is noted. There is a left-sided pacemaker. Moderate degenerative changes within the cervical spine. IMPRESSION: 1. Mild to moderate areas of stenosis within the major cerebral and cervical arteries as described above. 2. However, no evidence for arterial occlusion, dissection, or aneurysm within the cerebral or cervical arteries. Medications Administered ER Medications Given: None ECG Indication: other (CVA workup) Rate (beats per minute): 70 Findings: + paced rhythm (AV dual paced); no acute ischemic change Comparison ECG Date: from (Jul 10, 2013) Change: the following changes noted (AV paced replaced sinus) Code Status & VTE Plan Code Status Full VTE Prophylaxis Plan VTE Prophylaxis will be ordered: Yes PG Care Time/CCT Total # of Minutes Spent Total Time Spent with Patient: Total time spent is greater than 50% in coordination of care (as documented) at patient's floor/unit and/or counseling patient: Coding Level of Care Code 97067 Initial Inpt Care Lvl 3 Diagnoses Thalamic stroke I63.81 Diplopia H53.2 Hypertension I10 COPD (chronic obstructive pulmonary disease) J44.9 Hypercholesteremia E78.00 Moderate aortic stenosis I35.0 Peripheral artery disease I73.9 Paroxysmal atrial fibrillation I48.0
[2021-12-09] MEDS ORDERED: LABETALOL HCL IV 5 MG/ML 20ML IV PRN ×2 (13:05→14:31)
[2021-12-09] MEDS ORDERED: ONDANSETRON INJ 2 MG/ML 2 ML VIAL IV PRN (14:31)
[2021-12-09] MEDS ORDERED: PHARMACIST DISCHARGE MED REC CONSULT PRN (14:31)
[2021-12-09] MEDS ORDERED: ACETAMINOPHEN 325 MG TAB PO PRN (14:31)
--- NOTE | 2021-12-09 17:34 | XCELERA ---
[id number]
[2021-12-09] MEDS ORDERED: FERROUS GLUCONATE 324 MG TAB PO SCH (21:00)
[2021-12-09] MEDS ORDERED: TAMSULOSIN HCL 0.4 MG CAP PO SCH (21:00)
[2021-12-09] MEDS ORDERED: ROSUVASTATIN CALCIUM 5 MG TAB PO SCH (21:00)
[2021-12-09] MEDS ORDERED: METOPROLOL SUCC 25MG EXT REL TAB PO SCH (21:00)
[2021-12-09] MEDS: APIXABAN 5 MG TABLET PO SCH (21:09)
--- NOTE | 2021-12-10 06:08 | Electrocardiogram Report ---
Test Reason : Blood Pressure : / mmHG Vent. Rate : 070 BPM Atrial Rate : 070 BPM P-R Int : 354 ms QRS Dur : 134 ms QT Int : 420 ms P-R-T Axes : 022 -56 -13 degrees QTc Int : 453 ms AV dual-paced rhythm with prolonged AV conduction Abnormal ECG When compared with ECG of 10-JUL-2013 14:40, AV pacing has replaced sinus Confirmed by Estevan Rodriguez ([id number]) on 12/10/2021 6:07:48 AM Referred By: REFERRED SELF Confirmed By:Estevan Rodriguez
[2021-12-10 08:04] LABS: Hematocrit (blood only) 39.6 % (40.1-51.0); Hemoglobin 13.5 g/dl (14.0-18.0); Mean Corpuscular Hemoglobin 32.6 pg (25.0-34.0); Mean Corpuscular Hgb Conc 34.1 g/dL (32.0-36.0); Mean Corpuscular Volume 95.7 fL (80.0-100.0); Mean Platelet Volume 11.2 fL (9.4-12.4); Platelet Count 114 K/uL (130-400); RDW Coefficient of Variation 12.5 % (11.5-14.5); RDW Standard Deviation 43.7 fL (36.4-46.3); Red Blood Count 4.14 M/uL (4.63-6.08); White Blood Count 4.52 K/ul (4.8-10.8)
[2021-12-10 08:06] LABS: Eosinophils # (auto) 0.11 K/uL (0-0.50); Eosinophils % (auto) 2.4 %; Immature Granulocytes # (auto) 0.01 K/uL (0.00-0.02); Immature Granulocytes % (auto) 0.2 %; Lymphocytes # (auto) 0.92 K/uL (1.2-3.4); Lymphocytes % (auto) 20.4 %; Monocytes # (auto) 0.39 K/uL (0.24-0.82); Monocytes % (auto) 8.6 %; Neutrophils # (auto) 3.09 K/uL (1.4-6.5); Neutrophils % (auto) 68.4 %
[2021-12-10 08:07] LABS: BUN Creatinine Ratio 14.4 (10-20); Chol HDL Ratio 2.6 (0-5); Creatinine Clr Calc Pharmacy 54.8 ml/min; Est GFR (African American) 76.1 ml/min; Est GFR (Non-African American) 65.6 ml/min
[2021-12-10 08:39] LABS: Estimated Average Glucose 123 mg/dl; Hemoglobin A1C 5.9 % (4.5-5.6)
[2021-12-10] MEDS ORDERED: FLUTICASONE/VILANTEROL 100/25MCG 14 PUFFS/INHALER INH SCH (09:00)
[2021-12-10] MEDS ORDERED: ASPIRIN 81 MG ECTAB PO SCH (09:00)
[2021-12-10] MEDS ORDERED: UMECLIDINIUM BROMIDE 62.5MCG/BLISTER 7 PUFFS/INHALER INH SCH (09:00)
[2021-12-10] MEDS ORDERED: PANTOprazole 40 MG TAB PO SCH (09:00)
[2021-12-10] MEDS ORDERED: LOSARTAN POTASSIUM 25 MG TAB PO SCH (09:00)
[2021-12-10] MEDS ORDERED: CHOLECALCIFEROL 1,000 UNITS 25 MCG TAB PO SCH (09:00)
[2021-12-10] MEDS ORDERED: amLODIPine BESYLATE 5 MG TAB PO SCH (09:00)
[2021-12-10] MEDS: APIXABAN 5 MG TABLET PO SCH (09:03)
[2021-12-10] MEDS ORDERED: LOSARTAN POTASSIUM 25 MG TAB PO ONE (12:14)
--- NOTE | 2021-12-10 13:02 | Neurology Consultation ---
Date of Consultation December 10, 2021 Assessment & Plan (1) Thalamic stroke: 1. needs MRI brain with and without to clarify the age of findings on CT head 2. continue aspirin 81 mg Eliquis 5 mg BID for now may change to plavix with results of MRI 3. optimize HTN, HLD, DM LDL <70 consider patients age 4. PT/OT speech for discharge needs 5. 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 Discussed with Patti Montilla PA-C and pineda with recommendations as noted below. Patient is 86 yo M with multiple vascular risk factors including PVD, PAD on Eliquis, prior stroke, and HTN admitted with acute on set diplopia with inability to adduct left eye on examine. 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 MRI brain shows no evidence of acute stroke on review. Prior left thalamic stroke. continue home Eliquis and ASA. Discussed and recommended eye patch. Symptoms should improve with time. Recommend ophthalmology referral as outpatient. History of Present Illness Reason for Consultation: acute CVA Requesting Physician: Phani Lucas MD Attending Physician: Phani Lucas MD History of Present Illness Moses Pena 86 year old male who presents to [facility] ER 12/09/2021 with 2 days of double vision with associated vertigo. He comes in today because it was not getting better and his noticed his eyes going in opposite directions. 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 He has known extensive vascular disease with femoral bypass in 2019. He takes Eliquis and aspirin and reportedly has been taking these without missing any doses. He used to take a higher dose rosuvastatin 5mg PO daily however this was reduced about a year ago down to 5mg due to fatigue in his legs while walking which appeared to help. CT head was concerning for 9mm hypodensity within the left internal capsule / anterior left thalamus which is age indeterminate but new since CT in 2019. He is anxious to go home. the double vision started Monday but he didn't tell his about it until . The double vision goes away with covering one eye and is side by side. denies swallowing issues, one sided weakness, fatiguing during the day. He has not had an ophthalmology exam for over a year. Allergies Allergy/AdvReac Type Severity Reaction Status Date / Time cilostazol AdvReac Mild increased Verified 11/05/21 14:29 heartrate Home Medications Medication Instructions Recorded Confirmed Type apixaban 5 mg tablet (Eliquis) 5 mg PO BID 08/10/18 12/09/21 History ferrous gluconate 324 mg (38 mg 324 mg PO QPM 08/10/18 12/09/21 History iron) tablet aspirin 81 mg tablet,delayed 81 mg PO DAILY #30 tab 12/03/19 12/09/21 Rx release (Essence Low Dose Aspirin) cholecalciferol (vitamin D3) 25 25 mcg PO DAILY #30 tab 12/03/19 12/09/21 Rx mcg (1,000 unit) tablet amlodipine 5 mg tablet 5 mg PO DAILY 04/14/20 12/09/21 History albuterol sulfate 90 mcg/actuation 2 puff INHALATION Q4 PRN #18 g 09/02/20 12/09/21 Rx aerosol inhaler (ProAir HFA) budesonide-formoterol HFA 80 2 puff INHALATION BID #13.8 gm 10/11/21 12/09/21 Rx mcg-4.5 mcg/actuation aerosol inhaler (Symbicort) metoprolol succinate 50 mg 25 mg PO PM tab 11/05/21 12/09/21 History tablet,extended release 24 hr omeprazole 20 mg capsule,delayed 20 mg PO DAILY #90 cap 11/11/21 12/09/21 Rx release rosuvastatin 5 mg tablet 5 mg PO HS 12/09/21 12/09/21 History tamsulosin 0.4 mg capsule 0.4 mg PO HS 12/09/21 12/09/21 History losartan 50 mg tablet 50 mg PO DAILY #30 tab 12/10/21 Rx Patient History Medical History Anemia Atrial fibrillation ? BPH (benign prostatic hyperplasia) CAD (coronary artery disease) COPD with exacerbation Femoral artery stenosis, right Hearing deficit History of colon polyps Hyperlipidemia Hypertension Myocardial Infarction shown on an EKG, but never had symptom and had no idea he had it or when he had it On anticoagulant therapy eliquis PVD (peripheral vascular disease) Surgical History History of arthroscopy of left knee History of cataract surgery LEFT/RT History of colonoscopy History of endoscopic sinus surgery History of esophagogastroduodenoscopy (EGD) History of meniscectomy of left knee History of meniscectomy of right knee History of peripheral artery bypass right ileofemoral bypass graft with separate limbs to superficial and deep femoral arteries, [facility], Dr. Syed, 05/21/2018 History of strabismus surgery right History of tonsillectomy and adenoidectomy History of tooth extraction History of total left knee replacement (TKR) History of total right knee replacement (TKR) History of wisdom tooth extraction Status post [place]opliteal [place] [facility] [place] femoral to above the knee popliteal bypass graft Family History Grandmother (Paternal) Family history of diabetes mellitus Father Family hx of colon cancer Colorectal cancer Myocardial infarction Prostate cancer Other No family history of adverse response to anesthesia Denies family history of Ovarian cancer Breast cancer Social History Smoking Status: Never smoker Tobacco Type: Cigarettes Second Hand Exposure: No; Hx Alcohol Use: Yes Alcohol type: hard liquor Hx Substance Use: No Preferred Language: Citizen Of [place] Communication Ability: Effective Visual Impairment: Limited Hearing Ability: Use of Hearing Aid Clinic Cma Required: No Beliefs That Will Affect Care: None marital status: Current Living Situation: Spouse current occupational status: retired current occupation: Professor [employer] How many Children do You have: 2 Feels Safe at Home: Yes Childhood Exposure to Second-Hand Smoke: Yes caffeine: Yes (coffee in AM) during the past year weight has: remained stable Dental Care, Regularly: Yes Physical Activity Frequency: Daily Physical Activity Frequency Comment: 1 mile daily Seatbelt Use: always Sunscreen Use: Yes Assistive Devices: Cane and Walker Review of Systems Review of Systems: All systems reviewed & are unremarkable except as noted in HPI & below Physical Exam Physical Exam: Physical Exam: Constitutional: appearance nourished, healthy and normal Ears, Nose, Mouth and Throat: mucous membranes moist, no injection and skin normal, eyes normal Cardiovascular: normal S-1 and S-2 and regular rate and rhythm Respiratory: clear to auscultation (CTA) and no rales, ronchi or wheeze Musculoskeletal: no peripheral edema and good distal pulses Skin: no stigmata of neurocutaneous disease noted and normal and intact Eyes: extraocular movement right eye strabismus gross peripheral vision hemiopsia on right NEUROLOGIC EXAMINATION: Mental status: Alert and interactive Oriented to full date and location Oriented to person Speech fluent with no evidence of aphasia Cranial Nerves smile eye brow raise symmetric Reflexes: Deep tendon reflexes were decreased through out Sensory: no sensory deficits Coordination: finger to nose Gait/Stance: Posture lying in bed Motor: Negative for pronator drift of out stretched arms with eyes closed. Strength: hand railroad mechanic biceps triceps deltoid (stressed no fatigue) bilaterally , hip flex plantar patellar flex ext 5/5 Results & Data ([facility]) Vital Signs (Past 12 Hours) Vital Signs Temp Pulse Pulse Resp BP Pulse Ox 12/10/21 12:10 36.4 C L 70 18 186/83 H 94 12/10/21 08:12 36.6 C 70 16 188/92 H 96 12/10/21 07:05 70 12/10/21 03:13 36.8 C 69 18 175/79 H 94 Laboratory Results Abnormal lab results 12/10/21 12/10/21 12/10/21 Range/Units 06:01 06:01 06:01 WBC 4.52 L (4.8-10.8) K/ul RBC 4.14 L (4.63-6.08) M/uL Hgb 13.5 L (14.0-18.0) g/dl Hct 39.6 L (40.1-51.0) % Plt Count 114 L (130-400) K/uL Lymph # (Auto) 0.92 L (1.2-3.4) K/uL Glucose 126 H (70-99(Fasting)) mg/dl Hemoglobin A1c 5.9 H (4.5-5.6) % Diagnostic Findings CXR-A few small linear density at the left lung base suggesting subsegmental atelectasis or scarring. Otherwise, lungs are clear. The heart is normal in size. No pleural effusions. No pneumothorax. Is left-sided dual-chamber pacemaker. Small left basilar nodular density favors a nipple shadow. CT head-No acute intracranial hemorrhage or mass effect. 9 mm hypodensity within left internal capsule/anterior left thalamus. This suggests age indeterminate ischemia but is new since CT of March 17, 2020. Otherwise, no change in appearance of the brain. CTA head/neck- Mild to moderate areas of stenosis within the major cerebral and cervical arteries as described above. However, no evidence for arterial occlusion, dissection, or aneurysm within the cerebral or cervical arteries. MRI brain-No acute intracranial abnormality. Scattered foci of T2 hyperintensity seen within the periventricular and subcortical white matter are nonspecific but favor microvascular ischemic change.
--- NOTE | 2021-12-10 13:28 | Magnetic Resonance Report ---
Brain MRI WITHOUT CONTRAST HISTORY: Stroke like symptoms. Blurred vision. left internal capsule/anterior left thalamus TECHNIQUE: Multiplanar multisequence MRI of the brain was performed without the use of contrast. COMPARISON STUDY: Head CT 12/09/2021. FINDINGS: There is no mass, hematoma, midline shift, or acute infarct. The paranasal sinuses are fawn r. The mastoid air cells are clear. The ventricles and sulci demonstrate mild age-related involutiona l changes. Scattered foci of T2 hyperintensity seen within the periventricular and subcortical white matter are nonspecific but suggestive of mild microvascular ischemic changes. The major vascular flow voids at the skull base are well-maintained. Bilateral left replacement. Small T2 hyperintense focus within the left thalamus consistent with an old lacunar infarct. This corresponds to the CT abnormal ity. IMPRESSION: No acute intracranial abnormality. Scattered foci of T2 hyperintensity seen within the periventricula r and subcortical white matter are nonspecific but favor microvascular ischemic change. ACT 112: Negative or not required by law. Electronically signed by: Gaurang Dyson M.D. 12/10/2021 1:26 PM
--- NOTE | 2021-12-10 16:11 | Discharge Summary ---
Date of Service December 10, 2021 Admission HPI Per Admitting Provider Moses Pena 86 year old male who presents to the ER with 2 days of double vision with associated vertigo. He comes in today because it was not getting better and his noticed his eyes going in opposite directions. 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 No weakness or change in sensation in all 4 extremities. No change in hearing (chronic hearing aids) or voice. He has known extensive vascular disease with femoral bypass in 2019. No known history of stroke or heart attack but has presumed coronary artery disease per his cardiology note. He takes Eliquis and aspirin and reportedly has been taking these without missing any doses. He used to take a higher dose rosuvastatin 5mg PO daily however this was reduced about a year ago down to 5mg due to fatigue in his legs while walking which appeared to help. In the ER CT head was concerning for 9mm hypodensity within the left internal capsule / anterior left thalamus which is age indeterminate but new since CT in 2019. He was referred to medicine for admission and ongoing management of stroke. BP maximum in the ER 232/103 - he denies any headache or worsening symptoms since 2 days ago. 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 Diplopia d/t #1 3. Hypertensive urgency Discharge Exam GENERAL: Well-developed, well-nourished. NAD. EYES: L eye unable to move laterally to the right. PERRLA. Anicteric. LUNGS: Clear to auscultation bilaterally. No W/R/R. CARDIOVASCULAR: Regular rate and rhythm w 3/6 NEDA noted. ABDOMEN: Soft, non-tender and non-distended. BS normoactive x 4 quad. EXTREMITIES: No edema. Non-tender. Peripheral pulses +2/4. NEUROLOGIC: A&O x3. No focal neurological deficits. CN palsy on L. Remaining CN intact. PSYCHIATRIC: Cooperative. Appropriate mood and affect. SKIN: Warm, dry, intact. No rashes or lesions. Discharge Data Allergies Allergy/AdvReac Type Severity Reaction Status Date / Time cilostazol AdvReac Mild increased Verified 11/05/21 14:29 heartrate Consultations 12/09/21 12:00 ED Decision to Admit Stat 12/09/21 17:46 Consult Neurology Routine Ordered Studies Chest X-Ray 12/09/21 09:29 XR chest 1V portable HISTORY: Stroke symptoms. COMPARISON: Chest 07/10/2013. FINDINGS: A few small linear density at the left lung base suggesting subsegmental atelectasis or scarring. Otherwise, lungs are clear. The heart is normal in size. No pleural effusions. No pneumothorax. Is left-sided dual- chamber pacemaker. Small left basilar nodular density favors a nipple shadow. IMPRESSION: No acute process. ACT 112: Negative or not required by law. Electronically signed by: Gaurang Dyson M.D. 12/09/2021 10:[address] 12/09/21 09:45 CT OF THE HEAD WITHOUT CONTRAST CLINICAL HISTORY: Stroke Like Symptoms COMPARISON STUDY: Head CT March 17, 2020. TECHNIQUE: Helical axial images of the head were obtained without IV contrast. Automated exposure control was utilized for the study. A dose lowering techniqu e was utilized adhering to the principles of ALARA. FINDINGS: No acute intracranial hemorrhage, midline shift or mass effect is present. White matter hypodensity suggests small vessel disease. 9 mm hypodensity within the left internal capsule/anterior left thalamus is new since head CT of March 17, 2020. Otherwise, unchanged appearance of the brain. The ventricular system is unremarkable. The basal cisterns are patent. No extra- axial collections are present. There are no findings to suggest acute dural sinus thrombosis or acute territorial infarct. No significant calvarial abnormalities are present. Postoperative findings within the sinuses are noted. IMPRESSION: 1. No acute intracranial hemorrhage or mass effect. 2. 9 mm hypodensity within left internal capsule/anterior left thalamus. This suggests age indeterminate ischemia but is new since CT of March 17, 2020. Otherwise, no change in appearance of the brain. ACT 112: Negative or not required by law. Electronically signed by: Tom Barreto M.D. 12/09/2021 10:39 AM Head CTA 12/09/21 09:45 HEAD & NECK CTA HISTORY: Dizziness. Stroke Like Symptoms TECHNIQUE: Multiaxial CT images of the head were performed following the intravenous administration of contrast to evaluate the major cerebral vessels. Multiaxial CT images of the neck were also performed following the intravenous administration of contrast to evaluate the major cervical vessels. Maximum intensity projection images were also obtained. A dose lowering technique was utilized adhering to the principles of ALARA. COMPARISON: Head CT 03/17/2020. FINDINGS: There is no mass, hematoma, midline shift, or acute infarct. Moderate calcified plaque within the distal bilateral vertebral arteries and bilateral carotid siphons. This results in moderate stenosis of approximately 50% within the distal vertebral arteries and supraclinoid segments of the bilateral ICAs. There is mild multifocal narrowing within the basilar artery. Mild multifocal narrowing within the mid to distal left CRATE TIER. The right CRATE TIER is widely patent. Hypoplastic left A1 segment. However, no significant stenosis, occlusion, or a neurysm within the bilateral ACAs are MCAs. The major dural venous sinuses appear patent. The aortic arch and proximal great vessels are widely patent. There is moderate calcified plaque within the aortic arch and proximal great vessels. Mild to moderate focal narrowing within the takeoff of the right subclavian artery due to the calcified plaque. Moderate to severe stenosis at the takeoff of the bilateral vertebral arteries due to the calcified plaque. The remaining bilateral cervical vertebral arteries are widely patent. There is moderate to severe calcified plaque within the distal bilateral common carotid arteries, bilateral carotid bifurcations, and proximal bilateral internal carotid arteries. This results in 50% focal stenosis within the distal left common carotid artery. There is no central venous stenosis within the right common carotid artery. Approximately 30% focal stenosis within the proximal right internal carotid artery and up to 50% focal stenosis within the proximal left internal carotid artery due to the calcified plaque. Mild emphysema is noted. There is a left-sided pacemaker. Moderate degenerative changes within the cervical spine. IMPRESSION: 1. Mild to moderate areas of stenosis within the major cerebral and cervical arteries as described above. 2. However, no evidence for arterial occlusion, dissection, or aneurysm within the cerebral or cervical arteries. ACT 112: Negative or not required by law. Electronically signed by: Gaurang Dyson M.D. 12/09/2021 11:00 AM Neck CTA 12/09/21 09:45 HEAD & NECK CTA HISTORY: Dizziness. Stroke Like Symptoms TECHNIQUE: Multiaxial CT images of the head were performed following the intravenous administration of contrast to evaluate the major cerebral vessels. Multiaxial CT images of the neck were also performed following the intravenous administration of contrast to evaluate the major cervical vessels. Maximum intensity projection images were also obtained. A dose lowering technique was utilized adhering to the principles of ALARA. COMPARISON: Head CT 03/17/2020. FINDINGS: There is no mass, hematoma, midline shift, or acute infarct. Moderate calcified plaque within the distal bilateral vertebral arteries and bilateral carotid siphons. This results in moderate stenosis of approximately 50% within the distal vertebral arteries and supraclinoid segments of the bilateral ICAs. There is mild multifocal narrowing within the basilar artery. Mild multifocal narrowing within the mid to distal left CRATE TIER. The right CRATE TIER is widely patent. Hypoplastic left A1 segment. However, no significant stenosis, occlusion, or aneurysm within the bilateral ACAs are MCAs. The major dural venous sinuses appear patent. The aortic arch and proximal great vessels are widely patent. There is moderate calcified plaque within the aortic arch and proximal great vessels. Mild to moderate focal narrowing within the takeoff of the right subclavian artery due to the calcified plaque. Moderate to severe stenosis at the takeoff of the bilateral vertebral arteries due to the calcified plaque. The remaining bilateral cervical vertebral arteries are widely patent. There is moderate to severe calcified plaque within the distal bilateral common carotid arteries, bilateral carotid bifurcations, and proximal bilateral internal carotid arteries. This results in 50% focal stenosis within the distal left common carotid artery. There is no central venous stenosis within the right common carotid artery. Approximately 30% focal stenosis within the proximal right in ternal carotid artery and up to 50% focal stenosis within the proximal left internal carotid artery due to the calcified plaque. Mild emphysema is noted. There is a left-sided pacemaker. Moderate degenerative changes within the cervical spine. IMPRESSION: 1. Mild to moderate areas of stenosis within the major cerebral and cervical arteries as described above. 2. However, no evidence for arterial occlusion, dissection, or aneurysm within the cerebral or cervical arteries. ACT 112: Negative or not required by law. Electronically signed by: Gaurang Dyson M.D. 12/09/2021 11:00 AM Brain MRI 12/10/21 10:06 Brain MRI WITHOUT CONTRAST HISTORY: Stroke like symptoms. Blurred vision. left internal capsule/anterior left thalamus TECHNIQUE: Multiplanar multisequence MRI of the brain was performed without the use of contrast. COMPARISON STUDY: Head CT 12/09/2021. FINDINGS: There is no mass, hematoma, midline shift, or acute infarct. The paranasal sinuses are clear. The mastoid air cells are clear. The ventricles and sulci demonstrate mild age-related involutional changes. Scattered foci of T2 hyperintensity seen within the periventricular and subcortical white matter are nonspecific but suggestive of mild microvascular ischemic changes. The major vascular flow voids at the skull base are well-maintained. Bilateral left replacement. Small T2 hyperintense focus within the left thalamus consistent with an old lacunar infarct. This corresponds to the CT abnormality. IMPRESSION: No acute intracranial abnormality. Scattered foci of T2 hyperintensity seen within the periventricular and subcortical white matter are nonspecific but favor microvascular ischemic change. ACT 112: Negative or not required by law. Electronically signed by: Gaurang Dyson M.D. 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 ophthalmology f/u upon d/c to see if any c hanges can be made to his corrective lenses to improve his CN palsy thus improving his diplopia (2) Thalamic stroke: - Already taking ASA, Eliquis and rosuvastatin. Can increase rosuvastatin back to 20mg PO daily but given possible side effect of worsening ambulation 5mg may be the maximum he can end up taking - BP maximum 232/103 in the ER. Admissions ordered Labetalol 10mg q30 mins for sBP >= 220 or dBP >=120 - Stroke scale daily and PRN ordered - TTE: Mildly dilated left ventricle w/ normal systolic function. EF 55-60%. Septal motion consistent with BBB. No definite RWMA. Severe concentric LVH. Mild left atrial dilation. Moderate with trace regurg. Mild MR. Normal estimated RVSP. Mildly dilated aortic root. No visualized R to L inter atrial shunt with agitated saline administration. - Lipid panel and HbA1C with AM labs - PT/OT/Speech eval- no needs (3) Hypertension: with HYPERTENSIVE URGENCY (suspect d/t stress of being hospitalized + a component of uncontrolled HTN) - Continued on amlodipine 5mg PO daily, metoprolol succinate 25mg PO HS and losartan 25mg PO daily - Labetalol PRN as above but was allowing for permissive HTN d/t concern for CVA (4) COPD (chronic obstructive pulmonary disease): - Continue Symbicort 2 puffs BID or hospital formulary equivalent. - He reports this is not well controlled at home and coughing frequently while also taking albuterol twice a day regularly although this is not acute. - Advised to stop taking the albuterol regularly and will start on Spiriva. (5) Hypercholesteremia: - Continue Crestor, could consider increasing to 10mg but for now since he did not have a CVA and LDL is 53, would continue the 5mg HS (6) Moderate aortic stenosis: - Monitored by Dr Ritchie (7) Peripheral artery disease: - s/p right fem above the knee bypass 11/23/2019 - Continue ASA, Eliquis and rosuvastatin as above (8) Paroxysmal atrial fibrillation: - Currently in AV paced rhythm - Continue Eliquis for anticoagulation - Continue metoprolol for rate control - notably did very poorly with diltiazem in the past. At this time, patient is determined to be both medically and hemodynamically stable for discharge after seen by neurology this afternoon. Acute CVA has been ruled out, again his diplopia is secondary to cranial nerve palsy. Recommend f/u with a primary care provider within 7-10 days of discharge and f/u with optometry. Above plan of care has been d/w Dr. Karson Lucas who is in agreement with aforementioned plan. Total Time Total Time Spent Total Time Spent (In Minutes): >30 minutes Discharge Plan Discharge Items Patient Disposition: Home - Self-Care Reason For Visit: CVA Discharge Diagnosis: double vision due to 6th cranial nerve palsy Activity: Resume your previous activity Non-emergency contact: Primary Care Provider and Neurologist Call non-emergency contact if: you have any medication questions and your symptoms worsen Follow-up/Referrals: Mame Navarrete PA-C [Primary Care Provider] - Diet: Regular and Heart Healthy Addtl Attending Provider Instructions: You were hospitalized with double vision due to a 6th cranial nerve palsy. This can happen as a result due to vascular disease, a tumor compressing the nerve, or trauma. In your case, it is most likely due to vascular disease. Currently, you are already on appropriate medical therapy to treat this with Aspirin, Eliquis, Crestor, and blood pressure medications. You were seen by neurology during this visit. They may recommend that you follow up with an can slider who can make some adjustments to your corrective lenses to help this improve. Your blood pressure was elevated during your stay in the hospital. While a slight elevation is tolerable, yours was much higher than we would like to see. Subsequently, your Losartan has been increased from 25mg daily to 50mg daily. A new prescription has been sent to your pharmacy. I would recommend spot checking your blood pressure throughout the day once you return home to make sure that it does not drop too low with the increase in your medicine. No other medication changes have been made during your stay (besides your Losartan). These medications can be resumed as outlined below. Lastly, I would recommend that you establish care with a primary care provider and follow up with him/her in a timely manner, within 7-10 days. If you have any questions once you are discharged, feel free to contact the nonemergency number listed on your discharge paperwork. In the event of a medical emergency, call 911. Pending Studies at Discharge: No Stand-Alone Forms: [facility], Smoking Cessation Medications and DC Order Prescriptions: New losartan 50 mg Tablet 50 mg PO DAILY Qty: 30 RF: 0 Continued albuterol sulfate [ProAir HFA] 90 mcg/actuation HFA aerosol inhaler 2 puff INHALATION Q4 PRN (Reason: Shortness Of Breath) Qty: 18 RF: 5 Symbicort 80-4.5 mcg/actuation HFA aerosol inhaler 2 puff INHALATION BID Qty: 13.8 RF: 5 omeprazole 20 mg capsule,delayed release(DR/EC) 20 mg PO DAILY Qty: 90 RF: 3 amlodipine 5 mg tablet 5 mg PO DAILY RF: 0 cholecalciferol (vitamin D3) 25 mcg (1,000 unit) tablet 25 mcg PO DAILY Qty: 30 RF: 0 aspirin [Essence Low Dose Aspirin] 81 mg tablet,delayed release (DR/EC) 81 mg PO DAILY Qty: 30 RF: 5 metoprolol succinate 50 mg tablet extended release 24 hr 25 mg PO PM RF: 0 ferrous gluconate 324 mg (38 mg iron) Tablet 324 mg PO QPM RF: 0 Eliquis 5 mg Tablet 5 mg PO BID RF: 0 rosuvastatin 5 mg tablet 5 mg PO HS RF: 0 tamsulosin 0.4 mg capsule 0.4 mg PO HS RF: 0 Discontinued losartan 25 mg tablet 25 mg PO DAILY Qty: 90 RF: 3 Discharge Orders: Discharge Order (Routine); Ordered 12/10/21 Ordered By: Oxana Almazan Admission Data Admit Date/Time: 12/09/21 12:23 Attending Provider: Phani Lucas Admit Provider: Alexander Blair Primary Care Provider: Mame Navarrete Other Providers: Patti Adair ; Phani Lucas Supervising Physician Co-Signing Physician Notes I supervised Oxana Almazan PA-C on the care of this patient. The plan is as written in her note except for any following changes/exceptions: None CN6 palsy without sign of new stroke on MRI. Seen by neurology with approval for discharge and outpatient f/u. Coding Level of Care Code D/C DAY MANAGEMENT >30 MINS Diagnoses Thalamic stroke I63.81 Diplopia H53.2 Hypertension I10 COPD (chronic obstructive pulmonary disease) J44.9 Hypercholesteremia E78.00 Moderate aortic stenosis I35.0 Peripheral artery disease I73.9 Paroxysmal atrial fibrillation I48.0
[2021-12-11] MEDS ORDERED: LOSARTAN POTASSIUM 50 MG TAB PO SCH (09:00)
== END 2021-12-10 17:40 | disposition home or self-care (01) | DRG 123 ==
LOC: ED 08:37 → SUATTDRO 12:23 → EDINP 12:23 → 2S 14:44

== ENCOUNTER 2023-01-24 04:28 | Observation (INO) ==
[2023-01-24 05:45] LABS: Basophils # (auto) 0.01 K/uL (0-0.2); Basophils % (auto) 0.2 %; Eosinophils # (auto) 0.18 K/uL (0-0.50); Eosinophils % (auto) 3.3 %; Hematocrit (blood only) 36.9 % (42.0-52.0); Hemoglobin 12.6 g/dl (14.0-18.0); Immature Granulocytes # (auto) 0.02 K/uL (0.01-0.20); Immature Granulocytes % (auto) 0.4 %; Lymphocytes # (auto) 0.81 K/uL (1.2-3.4); Lymphocytes % (auto) 14.8 %; Mean Corpuscular Hemoglobin 31.9 pg (25.0-34.0); Mean Corpuscular Hgb Conc 34.1 g/dL (32.0-36.0); Mean Corpuscular Volume 93.4 fL (80.0-100.0); Mean Platelet Volume 11.6 fL (9.4-12.4); Monocytes # (auto) 0.46 K/uL (0.11-0.59); Monocytes % (auto) 8.4 %; Neutrophils # (auto) 3.98 K/uL (1.40-6.50); Neutrophils % (auto) 72.9 %; Platelet Count 119 K/uL (130-400); RDW Coefficient of Variation 13.2 % (11.5-14.5); Red Blood Count 3.95 M/uL (4.70-6.10); White Blood Count 5.46 K/ul (4.8-10.8)
[2023-01-24 05:52] LABS: Albumin Globulin Ratio 1.7 (0.9-2); Albumin Level 3.7 gm/dl (3.4-5.0); BUN Creatinine Ratio 20.3 (10-20); Bilirubin,Total 0.5 mg/dl (0.2-1.0); Calcium 8.7 mg/dl (8.6-10.3); Creatinine Clr Calc Pharmacy 38.6 ml/min; Est GFR (African American) 45.6 ml/min; Est GFR (Non-African American) 39.3 ml/min; Globulin 2.2 gm/dl (2.5-4.0); Magnesium 1.9 mg/dl (1.7-2.4); Potassium 4.9 mmol/L (3.5-5.1); Total Protein 5.9 gm/dl (6.0-8.3)
[2023-01-24 05:58] LABS: Troponin I High Sensitivity 11.8 pg/ml (0-20)
--- NOTE | 2023-01-24 06:00 | Emergency Department Note ---
Impression & Plan Dyspnea, CHF (congestive heart failure), Bilateral edema of lower extremity, Hypoxia ED Provider Note ED Provider Note NAME: IRAM CHOWDHURY AGE:87 SEX: Male : 1935 ARRIVES VIA: Private INFORMANT: Patient, ED PROVIDER(s): Elsie Crawford DO CHIEF COMPLAINT: Shortness of breath HPI: This is an 87-year-old male with a history of COPD, atrial fibrillation, and CHF who presents due to concern for increased nocturnal dyspnea over the course of the last month with limited ability to sleep. Patient does have MDIs at home, does not use home oxygen. He is not routinely followed by pulmonology for COPD although was recently referred to them and has an appointment next month. He denies any recent fevers, chills, or URI symptoms. He states he has had increased cough but no change in sputum. He denies nausea, vomiting, diarrhea. He follows with Dr. Ritchie for cardiology and was recently started on amiodarone. He is anticoagulated and has been taking this regularly. has a pulse oximeter at home and states he will began complaining of difficulty breathing overnight and she has checked his pulse ox with this. She states on Monday night with attempts at sleeping he dropped to 81%. He was also recently started on Lasix for his lower extremity edema. PAST MEDICAL HISTORY:See Below PAST SURGICAL HISTORY:See Below FAMILY HISTORY:See Below SOCIAL HISTORY:See Below HOME MEDICATIONS:See Below ALLERGIES:See Below VITALS:See Below PHYSICAL EXAMINATION: GENERAL: alert, well appearing, well nourished, no distress, non-toxic EYE EXAM: normal conjunctiva, PERRL and EOM's grossly intact OROPHARYNX: no exudate, no erythema, lips, buccal mucosa, and tongue normal and mucous membranes are moist NECK: supple, no nuchal rigidity, no adenopathy, non-tender LUNGS: Clear to auscultation. Normal chest wall mechanics, no w/r/r HEART: no murmurs, S1 normal and S2 normal ABDOMEN: abdomen soft, non-tender, normo-active bowel sounds, no masses, no rebound or guarding. BACK: Back is symmetrical on inspection and there is no deformity, no midline tenderness, no CVA tenderness. SKIN: no rashes, petechiae, orbruising UPPER EXTREMITIES: upper extremities are grossly normal. FROM, nml pulses b/l. LOWER EXTREMITIES: No pitting edema. FROM, nml pulses b/l. NEURO EXAM: Normal sensorium, cranial nerves II-XII grossly intact, normal speech, no facial droop,nogross weakness of arms, no gross weakness of legs. Gross sensation intact. No ataxia. Vital Signs: reviewed and remarkable Differential Diagnosis: PE, pneumonia, COPD exacerbation, pulmonary edema, pleural effusion, HERNANDEZ, pericardial effusion, ACS, pericarditis, anxiety, as well as others were considered MEDICAL DECISION MAKING: This is an 87-year-old male who presents emergency department due to concern for increased difficulty breathing particularly at night and trouble sleeping. Patient with a history of COPD, CHF, and atrial fibrillation. He does not wear home oxygen. Patient was afebrile and vital signs stable on arrival. Labs drawn and sent, IV established, EKG and chest ray performed bedside interpreted by me and patient monitored on telemetry. After extensive discussion with patient and at bedside and review of EMR, patient was monitored here. He did desat to 89% while on room air when he began falling asleep. Otherwise while awake he was sitting in the low 90s which I suspect is normal for him give n his COPD. He does not follow with pulmonology however is trying to establish with them. He does use several MDIs at home including both rescue and controller inhalers. He has never previously had a sleep study. is concerned due to notable hypoxia at home as measured by her at 81%. Case d iscussed with hospitalist team for additional evaluation and management. Consultation(s): 719: Discussed with Dr. Dietrich, [facility] hospitalist team. ER Treatment Provided: See below Diagnostics Interpreted By Me: -ECG: Ventricular paced at 80, rightward axis, prolonged intervals consistent with paced rhythm, no acute ST/T wave changes -Cardiac Monitoring: An order was placed for continuous cardiac monitoring. The monitor shows a rate of 80 with paced rhythm. -Laboratory studies: As stated above and show below. -Imaging studies: X-ray Chest: A single view study of the chest was reviewed and was negative for cardiomegaly, focal infiltrate, effusion, or wide mediastinum. Appearance of evolving pulmonary edema bilaterally. Triage Nursing Note Reviewed Prior/Outside Records Reviewed -outside cardiology visit reviewed Past Med/Surg History Medical History Anemia Atrial fibrillation ? BPH (benign prostatic hyperplasia) CAD (coronary artery disease) COPD with exacerbation Femoral artery stenosis, right Hearing deficit History of colon polyps Hyperlipidemia Hypertension Myocardial Infarction shown on an EKG, but never had symptom and had no idea he had it or when he had it On anticoagulant therapy eliquis PVD (peripheral vascular disease) Surgical History History of arthroscopy of left knee History of cataract surgery LEFT/RT History of colonoscopy History of endoscopic sinus surgery History of esophagogastroduodenoscopy (EGD) History of meniscectomy of left knee History of meniscectomy of right knee History of peripheral artery bypass right ileofemoral bypass graft with separate limbs to superficial and deep femoral arteries, [facility], Dr. Syed, 05/21/2018 History of strabismus surgery right History of tonsillectomy and adenoidectomy History of tooth extraction History of total left knee replacement (TKR) History of total right knee replacement (TKR) History of wisdom tooth extraction Status post femoral-popliteal bypass surgery (11/25/19) [facility], Dr Syed, femoral to above the knee popliteal bypass graft Family History Grandmother (Paternal) Family history of diabetes mellitus Father Family hx of colon cancer Colorectal cancer Myocardial infarction Prostate cancer Other No family history of adverse response to anesthesia Denies family history of Ovarian cancer Breast cancer Social History Smoking Status: Former smoker Tobacco Type: Cigarettes Second Hand Exposure: No; Do You Dip or Chew Tobacco: No; Tobacco Cessation Education Requested by Patient: No Hx Alcohol Use: Yes Alcohol type: hard liquor Hx Substance Use: No Preferred Language: Mozambican Communication Ability: Effective Visual Impairment: Limited Hearing Ability: Use of Hearing Aid Police Investigator Required: No Beliefs That Will Affect Care: None marital status: Current Living Situation: Spouse current occupational status: retired current occupation: Retried How many Children do You have: 2 Other Information That Helps Us Care for You: No Feels Safe at Home: Yes Safety Concerns: Feels Safe At This Time Childhood Exposure to Second-Hand Smoke: Yes Diet: regular caffeine: Yes (coffee in AM) during the past year weight has: remained stable Dental Care, Regularly: Yes Physical Activity Frequency: Daily Physical Activity Frequency Comment: 1 mile daily Seatbelt Use: always Sunscreen Use: Yes Assistive Devices: Cane, Glasses and Hearing Aid - Bilateral Allergies Allergies Allergy/AdvReac Type Severity Reaction Status Date / Time cilostazol AdvReac Mild increased Verified 01/18/23 09:53 heartrate Home Meds Home Medications Medication Instructions Recorded Confirmed apixaban 5 mg tablet (Eliquis) 5 mg PO BID 08/10/18 01/24/23 ferrous gluconate 324 mg (38 mg 324 mg PO QPM 08/10/18 01/24/23 iron) tablet rosuvastatin 5 mg tablet 5 mg PO HS 12/09/21 01/24/23 amiodarone 200 mg tablet See Rx Instructions .Route .COMPLEX 01/24/23 01/24/23 furosemide 20 mg tablet 20 mg PO DAILY 01/24/23 01/24/23 tiotropium bromide 1.25 2 puff inhalation DAILY 01/24/23 01/24/23 mcg/actuation mist for inhalation (Spiriva Respimat) Previous Rx's Medication Instructions Recorded aspirin 81 mg tablet,delayed 81 mg PO DAILY #30 tabs 12/03/19 release (Essence Low Dose Aspirin) cholecalciferol (vitamin D3) 25 25 mcg PO DAILY #30 tabs 12/03/19 mcg (1,000 unit) tablet losartan 50 mg tablet 50 mg PO DAILY #30 tabs 12/10/21 coQ10 (ubiquinol) 200 mg capsule 200 mg PO DAILY #30 caps 09/05/22 ezetimibe 10 mg tablet 10 mg PO DAILY #30 tabs 09/05/22 metoprolol succinate 25 mg 25 mg PO DAILY #30 tabs 09/19/22 tablet,extended release 24 hr amlodipine 2.5 mg tablet 2.5 mg PO DAILY 90 days #90 tabs 11/29/22 amlodipine 5 mg tablet 5 mg PO DAILY #90 tabs 11/29/22 omeprazole 20 mg capsule,delayed 20 mg PO DAILY #90 caps 11/29/22 release budesonide-formoterol HFA 80 2 puff inhalation BID #13.8 grams 12/01/22 mcg-4.5 mcg/actuation aerosol inhaler (Symbicort) inhalational spacing device #2 ea 01/05/23 (Luisguzmanakshat Herrera C spacer) tamsulosin 0.4 mg capsule 0.4 mg PO HS #90 caps 01/12/23 Results & Data (ED) Vital Signs Vital Signs - 24 hr 01/24/23 07:10 01/24/23 07:18 01/24/23 06:50 Pulse Rate 79 79 Pulse Rate [Apical] 80 Pulse Rate from SpO2 Sensor 81 Respiratory Rate 15 20 Blood Pressure Blood Pressure [Left Arm] 169/104 H Blood Pressure Mean Blood Pressure Mean [Left Arm] 125 Pulse Oximetry 89 L 91 Oxygen Delivery Method Room Air 01/24/23 07:00 01/24/23 07:00 01/24/23 07:10 Pulse Rate 79 79 Pulse Rate [Apical] Pulse Rate from SpO2 Sensor 81 81 Respiratory Rate 15 8 L Blood Pressure 169/105 H Blood Pressure [Left Arm] Blood Pressure Mean 133 Blood Pressure Mean [Left Arm] Pulse Oximetry 89 L 92 Oxygen Delivery Method 01/24/23 07:20 01/24/23 07:30 01/24/23 07:30 Pulse Rate 79 80 Pulse Rate [Apical] Pulse Rate from SpO2 Sensor 76 80 Respiratory Rate 17 16 Blood Pressure 163/90 H Blood Pressure [Left Arm] Blood Pressure Mean 101 Blood Pressure Mean [Left Arm] Pulse Oximetry 93 93 Oxygen Delivery Method 01/24/23 07:40 Pulse Rate 79 Pulse Rate [Apical] Pulse Rate from SpO2 Sensor 81 Respiratory Rate 18 Blood Pressure Blood Pressure [Left Arm] Blood Pressure Mean Blood Pressure Mean [Left Arm] Pulse Oximetry 91 Oxygen Delivery Method Laboratory Data 01/24/23 05:15 01/24/23 05:15 Lab Results 01/24/23 01/24/23 01/24/23 Range/Units 05:15 05:15 05:15 WBC 5.46 (4.8-10.8) K/ul RBC 3.95 L (4.70-6.10) M/uL Hgb 12.6 L (14.0-18.0) g/dl Hct 36.9 L (42.0-52.0) % MCV 93.4 (80.0-100.0) fL MCH 31.9 (25.0-34.0) pg MCHC 34.1 (32.0-36.0) g/dL RDW Std Deviation 45.0 (36.4-46.3) fL RDW Coeff of Ching 13.2 (11.5-14.5) % Plt Count 119 L (130-400) K/uL MPV 11.6 (9.4-12.4) fL Immature Gran % (Auto) 0.4 % Neut % (Auto) 72.9 % Lymph % (Auto) 14.8 % Gonzales % (Auto) 8.4 % Eos % (Auto) 3.3 % Baso % (Auto) 0.2 % Neut # (Auto) 3.98 (1.40-6.50) K/uL Lymph # (Auto) 0.81 L (1.2-3.4) K/uL Gonzales # (Auto) 0.46 (0.11-0.59) K/uL Eos # (Auto) 0.18 (0-0.50) K/uL Baso # (Auto) 0.01 (0-0.2) K/uL Immature Gran # (Auto) 0.02 (0.01-0.20) K/uL PT 12.5 H (9.0-12.0) Seconds INR 1.2 H (0.9-1.1) Sodium 132 L (136-145) mmol/L Potassium 4.9 (3.5-5.1) mmol/L Chloride 102 (98-107) mmol/L Carbon Dioxide 22 (21-32) mmol/L Anion Gap 8 (3-11) BUN 32 H (6-23) mg/dl Creatinine 1.58 H (0.6-1.4) mg/dl Est Cr Clr Drug Dosing 38.6 ml/min Est GFR ( Amer) 45.6 ml/min Est GFR (Non-Af Amer) 39.3 ml/min BUN/Creatinine Ratio 20.3 H (10-20) Glucose 131 H (70-99(Fasting)) mg/dl Calcium 8.7 (8.6-10.3) mg/dl Magnesium 1.9 (1.7-2.4) mg/dl Total Bilirubin 0.5 (0.2-1.0) mg/dl AST 30 (13-39) U/L ALT 29 (7-52) U/L Alkaline Phosphatase 82 (34-104) U/L Troponin I High Sens 11.8 (0-20) pg/ml B-Natriuretic Peptide (0-100) pg/ml Total Protein 5.9 L (6.0-8.3) gm/dl Albumin 3.7 (3.4-5.0) gm/dl Globulin 2.2 L (2.5-4.0) gm/dl Albumin/Globulin Ratio 1.7 (0.9-2) Lipase 13 (11-82) U/L TSH (0.300-4.500) uIu/ml Free T4 (0.61-1.60) ng/dl 01/24/23 01/24/23 Range/Units 05:15 05:15 WBC (4.8-10.8) K/ul RBC (4.70-6.10) M/uL Hgb (14.0-18.0) g/dl Hct (42.0-52.0) % MCV (80.0-100.0) fL MCH (25.0-34.0) pg MCHC (32.0-36.0) g/dL RDW Std Deviation (36.4-46.3) fL RDW Coeff of Ching (11.5-14.5) % Plt Count (130-400) K/uL MPV (9.4-12.4) fL Immature Gran % (Auto) % Neut % (Auto) % Lymph % (Auto) % Gonzales % (Auto) % Eos % (Auto) % Baso % (Auto) % Neut # (Auto) (1.40-6.50) K/uL Lymph # (Auto) (1.2-3.4) K/uL Gonzales # (Auto) (0.11-0.59) K/uL Eos # (Auto) (0-0.50) K/uL Baso # (Auto) (0-0.2) K/uL Immature Gran # (Auto) (0.01-0.20) K/uL PT (9.0-12.0) Seconds INR (0.9-1.1) Sodium (136-145) mmol/L Potassium (3.5-5.1) mmol/L Chloride (98-107) mmol/L Carbon Dioxide (21-32) mmol/L Anion Gap (3-11) BUN (6-23) mg/dl Creatinine (0.6-1.4) mg/dl Est Cr Clr Drug Dosing ml/min Est GFR ( Amer) ml/min Est GFR (Non-Af Amer) ml/min BUN/Creatinine Ratio (10-20) Glucose (70-99(Fasting)) mg/dl Calcium (8.6-10.3) mg/dl Magnesium (1.7-2.4) mg/dl Total Bilirubin (0.2-1.0) mg/dl AST (13-39) U/L ALT (7-52) U/L Alkaline Phosphatase (34-104) U/L Troponin I High Sens (0-20) pg/ml B-Natriuretic Peptide 572 H (0-100) pg/ml Total Protein (6.0-8.3) gm/dl Albumin (3.4-5.0) gm/dl Globulin (2.5-4.0) gm/dl Albumin/Globulin Ratio (0.9-2) Lipase (11-82) U/L TSH 4.839 H (0.300-4.500) uIu/ml Free T4 1.10 (0.61-1.60) ng/dl Administered Medications Albuterol (Albuterol Hfa 8 Gm Inhaler) 2 puffs INH Q4 PRN PRN Reason: Shortness Of Breath Stop: 02/23/23 09:49 Last Admin: 01/25/23 02:19 Dose: 2 puffs Documented By: BWT Amiodarone HCl (Amiodarone 200 Mg Tab) 200 mg PO BIDM [facility] Stop: 02/23/23 09:59 Last Admin: 01/24/23 17:39 Dose: 200 mg Documented By: Admin: 01/24/23 10:46 Dose: 200 mg Documented By: EP Amlodipine Besylate (Amlodipine Besylate 5 Mg Tab) 7.5 mg PO DAILY [facility] Stop: 02/23/23 09:59 Last Admin: 01/24/23 10:47 Dose: Not Given Documented By: EP Apixaban (Apixaban 2.5 Mg Tab) 2.5 mg PO BID [facility] Stop: 02/23/23 10:14 Last Admin: 01/24/23 19:45 Dose: 2.5 mg Documented By: [employer]STRUMENT [employer]SEMBL[employer] SUPERVISOR Admin: 01/24/23 10:49 Dose: Not Given Documented By: EP Aspirin (Aspirin 81 Mg Ectab) 81 mg PO DAILY [facility] Stop: 02/23/23 09:59 Last Admin: 01/24/23 10:48 Dose: Not Given Documented By: EP Ezetimibe (Ezetimibe 10 Mg Tab) 10 mg PO DAILY [facility] Stop: 02/23/23 09:59 Last Admin: 01/24/23 10:48 Dose: Not Given Documented By: EP Fluticasone/Vilanterol (Fluticasone/Vilanterol 100/25mcg 14 Puffs/Inhaler) 1 puffs INH DAILY [facility] Stop: 02/23/23 09:59 Last Admin: 01/24/23 11:07 Dose: Not Given Documented By: EP Losartan Potassium (Losartan Potassium 50 Mg Tab) 50 mg PO DAILY [facility] Stop: 02/23/23 09:59 Last Admin: 01/24/23 10:48 Dose: Not Given Documented By: EP Metoprolol Succinate (Metoprolol Succ 25mg Ext Rel Tab) 25 mg PO DAILY [facility] Stop: 02/23/23 09:59 Last Admin: 01/24/23 10:48 Dose: Not Given Documented By: EP Pantoprazole Sodium (Pantoprazole 40 Mg Tab) 40 mg PO DAILY [facility] Stop: 02/23/23 09:59 Last Admin: 01/24/23 10:49 Dose: 40 mg Documented By: EP Rosuvastatin Calcium (Rosuvastatin Calcium 5 Mg Tab) 5 mg PO [facility] Stop: 02/23/23 20:59 Last Admin: 01/24/23 19:45 Dose: 5 mg Documented By: OPTICAL INSTRUMENT [employer]SEMBLY SUPERVISOR Tamsulosin HCl (Tamsulosin Hcl 0.4 Mg Cap) 0.4 mg PO [facility] Stop: 02/23/23 20:59 Last Admin: 01/24/23 19:45 Dose: 0.4 mg Documented By: OPTICAL INSTRUMENT ASSEMBLY SUPERVISOR Umeclidinium [place] (Umeclidinium [place] 62.5mcg/Blister 7 Puffs/Inhaler) 1 puffs INH DAILY [facility] Stop: 02/23/23 10:14 Last Admin: 01/24/23 10:50 Dose: Not Given Documented By: EP Discontinued Medications Furosemide (Furosemide Inj 20 Mg/2 Ml Vial) 20 mg IV ONE ONE Stop: 01/24/23 06:57 Last Admin: 08/22/23 07:25 Dose: 20 mg Documented By: KV Furosemide (Furosemide 40 Mg/4 Ml Vial) Confirm Administered Dose 40 mg IV .STK- MED ONE Stop: 01/24/23 07:21 Last Admin: 01/24/23 07:25 Dose: Not Given Documented By: KV Furosemide (Furosemide Inj 20 Mg/2 Ml Vial) 20 mg IV ONE ONE Stop: 01/24/23 17:14 Last Admin: 01/24/23 17:42 Dose: 20 mg Documented By: EP Imaging Data Radiologist's Impression: Chest X-Ray 01/24/23 05:13 XR chest 1V portable HISTORY: 87 years-old Male sob acute shortness of breath COMPARISON: 12/30/2022 TECHNIQUE: AP view of the chest FINDINGS: Cardiac silhouette is enlarged. Pulmonary vascular congestion. Aortic valvular endograft. Left subclavian pacer. Atherosclerosis of the aorta. No pneumothorax. Small pleural effusions with mild bibasilar opacities. Degenerative changes of the shoulders and spine. IMPRESSION: 1. Cardiomegaly with pulmonary vascular congestion. 2. Small pleural effusions with mild bibasilar atelectasis. ACT 112: Negative or not required by law. The above report was generated using voice recognition software. It may contain grammatical, syntax or spelling errors. Electronically signed by: Tacho Cabrera M.D. 01/24/2023 6:49 AM Discharge Plan Visit Data Chief Complaint: Shortness of Breath/Dyspnea Stated Complaint: SOB, UNABLE SLEEP, COPD ED Provider: Elsie Crawford Discharge Problem: Dyspnea, CHF (congestive heart failure), Bilateral edema of lower extremity, Hypoxia Patient Disposition: Admitted As Inpatient Discharge Instructions Interventions: ED Discharge Assessment Last Done: 01/24/23 09:06
[2023-01-24 06:05] LABS: Thyroid Stimulating Hormone 4.839 uIu/ml (0.300-4.500)
[2023-01-24 06:15] LABS: INR 1.2 (0.9-1.1); Prothrombin Time 12.5 Seconds (9.0-12.0)
[2023-01-24 06:41] LABS: T4 Free Thyroxine 1.1 ng/dl (0.61-1.60)
--- NOTE | 2023-01-24 06:51 | XRay Report ---
XR chest 1V portable HISTORY: 87 years-old Male sob acute shortness of breath COMPARISON: 12/30/2022 TECHNIQUE: AP view of the chest FINDINGS: Cardiac silhouette is enlarged. Pulmonary vascular congestion. Aortic valvular endograft. Left subcla vian pacer. Atherosclerosis of the aorta. No pneumothorax. Small pleural effusions with mild bibasila r opacities. Degenerative changes of the shoulders and spine. IMPRESSION: 1. Cardiomegaly with pulmonary vascular congestion. 2. Small pleural effusions with mild bibasilar atelectasis. ACT 112: Negative or not required by law. The above report was generated using voice recognition software. It may contain grammatical, syntax o r spelling errors. Electronically signed by: Tacho Cabrera M.D. 01/24/2023 6:49 AM
[2023-01-24] MEDS ORDERED: FUROSEMIDE INJ 20 MG/2 ML VIAL IV ONE ×2 (06:56→17:13)
[2023-01-24] MEDS ORDERED: FUROSEMIDE 40 MG/4 ML VIAL IV ONE (07:20)
--- NOTE | 2023-01-24 07:29 | History & Physical Report ---
Date of Service January 24, 2023 Assessment & Plan (1) CHF (congestive heart failure): Plan: patient is a previous history of diastolic congestive heart failure but he had a TAVR to help treat this. He subsequently also has atrial fibrillation and this may be rate related diastolic heart failure. He presents with hypoxemia chest x-ray changes consistent with fluid overload he was given IV diuretics in the emergency department. He is typically sees Dr. Ritchie. The patient will be observed in our facility for continued diuresis given his chronic kidney disease stage III [address] Ritchie and possible pacemaker adjustment echo pending (2) Paroxysmal atrial fibrillation: Plan: history of paroxysmal A-fib typically anticoagulated with Eliquis, rate controlled with metoprolol recently added amiodarone and has a permanent pacemaker (3) COPD (chronic obstructive pulmonary disease): Plan: reportedly by history patient has COPD has not establish care with pulmonary medicine at this point he takes tiotropium, budesonide/formoterol, and rescue inhaler of albuterol will have nocturnal oxymetry (4) Thalamic stroke: Plan: patient has a history of a thalamic stroke in 2021 with no residual deficits unclear whether this is embolic from his atrial fibrillation (5) Status post transcatheter aortic valve replacement: History of Present Illness Primary Care Provider: Akua Caldera MD 87-year-old male with a history of COPD, CVA atrial fibrillation, history of TAVR and previous history of diastolic CHF who presents due to concern for increased nocturnal dyspnea over the course of the last month with limited ability to sleep. Patient does have MDIs at home, does not use home oxygen. He is not routinely followed by pulmonology for COPD although was recently referred to them and has an appointment next month. He denies any recent fevers, chills, or URI symptoms. He states he has had increased cough but no change in sputum. He denies nausea, vomiting, diarrhea. He follows with Dr. Ritchie for cardiology and was recently started on amiodarone. He is anticoagulated and has been taking this regularly. has a pulse oximeter at home and states he will began complaining of difficulty breathing overnight and she has checked his pulse ox with this. She states on Monday night with attempts at sleeping he dropped to 81%. He was also recently started on Lasix for his lower extremity edema. He was given lasix in the ER. Allergies Allergy/AdvReac Type Severity Reaction Status Date / Time cilostazol AdvReac Mild increased Verified 01/18/23 09:53 heartrate Home Medications Medication Instructions Recorded Confirmed Type apixaban 5 mg tablet (Eliquis) 5 mg PO BID 08/10/18 01/24/23 History ferrous gluconate 324 mg (38 mg 324 mg PO QPM 08/10/18 01/24/23 History iron) tablet aspirin 81 mg tablet,delayed 81 mg PO DAILY #30 tabs 12/03/19 01/24/23 Rx release (Essence Low Dose Aspirin) cholecalciferol (vitamin D3) 25 25 mcg PO DAILY #30 tabs 12/03/19 01/24/23 Rx mcg (1,000 unit) tablet rosuvastatin 5 mg tablet 5 mg PO HS 12/09/21 01/24/23 History losartan 50 mg tablet 50 mg PO DAILY #30 tabs 12/10/21 01/24/23 Rx coQ10 (ubiquinol) 200 mg capsule 200 mg PO DAILY #30 caps 09/05/22 01/24/23 Rx ezetimibe 10 mg tablet 10 mg PO DAILY #30 tabs 09/05/22 01/24/23 Rx metoprolol succinate 25 mg 25 mg PO DAILY #30 tabs 09/19/22 01/24/23 Rx tablet,extended release 24 hr amlodipine 2.5 mg tablet 2.5 mg PO DAILY 90 days #90 tabs 11/29/22 01/24/23 Rx amlodipine 5 mg tablet 5 mg PO DAILY #90 tabs 11/29/22 01/24/23 Rx omeprazole 20 mg capsule,delayed 20 mg PO DAILY #90 caps 11/29/22 01/24/23 Rx release budesonide-formoterol HFA 80 2 puff inhalation BID #13.8 grams 12/01/22 01/24/23 Rx mcg-4.5 mcg/actuation aerosol inhaler (Symbicort) inhalational spacing device #2 ea 01/05/23 01/18/23 Rx ([facility] spacer) tamsulosin 0.4 mg capsule 0.4 mg PO HS #90 caps 01/12/23 01/24/23 Rx amiodarone 200 mg tablet See Rx Instructions .Route .COMPLEX 01/24/23 01/24/23 History furosemide 20 mg tablet 20 mg PO DAILY 01/24/23 01/24/23 History tiotropium bromide 1.25 2 puff inhalation DAILY 01/24/23 01/24/23 History mcg/actuation mist for inhalation (Spiriva Respimat) Past Med/Surg History Medical History Anemia Atrial fibrillation ? BPH (benign prostatic hyperplasia) CAD (coronary artery disease) COPD with exacerbation Femoral artery stenosis, right Hearing deficit History of colon polyps Hyperlipidemia Hypertension Myocardial Infarction shown on an EKG, but never had symptom and had no idea he had it or when he had it On anticoagulant therapy eliquis PVD (peripheral vascular disease) Surgical History History of arthroscopy of left knee History of cataract surgery LEFT/RT History of colonoscopy History of endoscopic sinus surgery History of esophagogastroduodenoscopy (EGD) History of meniscectomy of left knee History of meniscectomy of right knee History of peripheral artery bypass right ileofemoral bypass graft with separate limbs to superficial and deep femoral arteries, [facility], Dr. Syed, 05/21/2018 History of strabismus surgery right History of tonsillectomy and adenoidectomy History of tooth extraction History of total left knee replacement (TKR) History of total right knee replacement (TKR) History of wisdom tooth extraction Status post femoral-popliteal bypass [place]25/19[place] [facility] [place], femoral to above the knee popliteal bypass graft Family History Grandmother (Paternal) Family history of diabetes mellitus Father Family hx of colon cancer Colorectal cancer Myocardial infarction Prostate cancer Other No family history of adverse response to anesthesia Denies family history of Ovarian cancer Breast cancer Social History Smoking Status: Former smoker Tobacco Type: Cigarettes Second Hand Exposure: No; Do You Dip or Chew Tobacco: No; Tobacco Cessation Education Requested by Patient: No Hx Alcohol Use: Yes Alcohol type: hard liquor Hx Substance Use: No Preferred Language: Ug[place]an Communication Ability: Effective Visual Impairment: Limited Hearing Ability: Use of Hearing Aid Stereotyper Required: No Beliefs That Will Affect Care: None marital status: Current Living Situation: Spouse current occupational status: retired current occupation: Retried How many Children do You have: 2 Other Information That Helps Us Care for You: No Feels Safe at Home: Yes Safety Concerns: Feels Safe At This Time Childhood Exposure to Second-Hand Smoke: Yes Diet: regular caffeine: Yes (coffee in AM) during the past year weight has: remained stable Dental Care, Regularly: Yes Physical Activity Frequency: Daily Physical Activity Frequency Comment: 1 mile daily Seatbelt Use: always Sunscreen Use: Yes Assistive Devices: Cane, Glasses and Hearing Aid - Bilateral Review of Systems Review of Systems: mild distress and fatigue no headache, no visual changes no speech or swallowing issues mild chest pain, pressure or palpitations c/o shortness of breath, cough or wheezes feels the pt gets hypoxic at night no abdominal pain, nausea or vomiting, diarrhea or constipation no dysuria, hematuria or frequency no focal joint pain or swelling no back pain, CVA tenderness or radicular pain no bruising, bleeding or rashes no focal signs of weakness or numbness or altered sensation no complaints of anxiety or depression.. Physical Exam Physical Exam: The patient appeared well nourished and normally developed. Vital signs as documented. Head exam is normocephalic atraumatic Neck is without JVD, thyromegaly, or carotid bruits. Lungs are diminished , no focal loss of breath sounds Cardiac exam, Rhythm is regular.. systolic murmur, rubs or gallops. Abdominal exam reveals normal bowel sounds, soft non tender, no masses Extremities are nonedematous and both pedal pulses are present Neurologic exam is alert and oriented, no focal loss of strength or sensation Skin is without bruises or rashes Psychologically is without concerns for anxiety or depression.. Results & Data Results & Data Vital Signs (Past 12 Hours) Vital Signs Temp Pulse Pulse Resp BP BP Pulse Ox 01/24/23 07:18 80 15 169/104 H 89 L 01/24/23 07:10 79 01/24/23 05:55 79 01/24/23 05:36 80 16 141/89 H 96 01/24/23 05:41 97 01/24/23 04:33 98.1 F 81 20 150/84 H 97 O2 Del Method O2 Flow Rate 01/24/23 07:18 Room Air 01/24/23 07:10 01/24/23 05:55 01/24/23 05:36 Room Air 01/24/23 05:41 Room Air 0 01/24/23 04:33 Room Air ECG Additional Comments: Ventricularly paced rhythm PG Care Time/CCT Total # of Minutes Spent Total Time Spent with Patient: Total time spent is greater than 50% in coordination of care (as documented) at patient's floor/unit and/or counseling patient: Coding Level of Care Code 57282 INT INP/OBS CARE 3/75MIN Diagnoses CHF (congestive heart failure) I50.9 Paroxysmal atrial fibrillation I48.0 COPD (chronic obstructive pulmonary disease) J44.9 Thalamic stroke I63.81 Status post transcatheter aortic valve replacement Z95.2
[2023-01-24] MEDS ORDERED: amLODIPine BESYLATE 5 MG TAB PO SCH (09:50)
[2023-01-24] MEDS ORDERED: ONDANSETRON INJ 2 MG/ML 2 ML VIAL IV PRN (09:50)
[2023-01-24] MEDS ORDERED: ALBUTEROL HFA 8 GM INHALER INH PRN (09:50)
[2023-01-24] MEDS ORDERED: ACETAMINOPHEN 325 MG TAB PO PRN (09:50)
[2023-01-24] MEDS ORDERED: NITROGLYCERIN SL 0.4 MG/TAB TAB SL PRN (09:50)
[2023-01-24] MEDS: AMIODARONE 200 MG TAB PO SCH ×2 (10:46→17:39)
[2023-01-24] MEDS: amLODIPine BESYLATE 5 MG TAB PO SCH (10:47)
[2023-01-24] MEDS: ASPIRIN 81 MG ECTAB PO SCH (10:48)
[2023-01-24] MEDS: LOSARTAN POTASSIUM 50 MG TAB PO SCH (10:48)
[2023-01-24] MEDS: METOPROLOL SUCC 25MG EXT REL TAB PO SCH (10:48)
[2023-01-24] MEDS: EZETIMIBE 10 MG TAB PO SCH (10:48)
[2023-01-24] MEDS: APIXABAN 2.5 MG TAB PO SCH ×2 (10:49→19:45)
[2023-01-24] MEDS: PANTOprazole 40 MG TAB PO SCH (10:49)
[2023-01-24] MEDS: UMECLIDINIUM BROMIDE 62.5MCG/BLISTER 7 PUFFS/INHALER INH SCH (10:50)
[2023-01-24] MEDS: FLUTICASONE/VILANTEROL 100/25MCG 14 PUFFS/INHALER INH SCH (11:07)
--- NOTE | 2023-01-24 17:34 | Electrocardiogram Report ---
Test Reason : Blood Pressure : / mmHG Vent. Rate : 080 BPM Atrial Rate : 081 BPM P-R Int : 000 ms QRS Dur : 184 ms QT Int : 472 ms P-R-T Axes : 000 265 068 degrees QTc Int : 544 ms Ventricular-paced rhythm Abnormal ECG When compared with ECG of 09-DEC-2021 09:17, Vent. rate has increased BY 10 BPM Confirmed by Dago Rios ([id number]) on 01/24/2023 5:34:37 PM Referred By: REFERRED SELF Confirmed By:Dago Rios
[2023-01-24] MEDS ORDERED: TAMSULOSIN HCL 0.4 MG CAP PO SCH (21:00)
[2023-01-24] MEDS ORDERED: ROSUVASTATIN CALCIUM 5 MG TAB PO SCH (21:00)
[2023-01-25 07:42] LABS: Hematocrit (blood only) 36.3 % (42.0-52.0); Hemoglobin 12.5 g/dl (14.0-18.0); Mean Corpuscular Hemoglobin 31.6 pg (25.0-34.0); Mean Corpuscular Hgb Conc 34.4 g/dL (32.0-36.0); Mean Corpuscular Volume 91.7 fL (80.0-100.0); Mean Platelet Volume 11.3 fL (9.4-12.4); Platelet Count 111 K/uL (130-400); RDW Coefficient of Variation 13.2 % (11.5-14.5); RDW Standard Deviation 44.5 fL (36.4-46.3); Red Blood Count 3.96 M/uL (4.70-6.10); White Blood Count 4.78 K/ul (4.8-10.8)
[2023-01-25 08:11] LABS: BUN Creatinine Ratio 17.7 (10-20); Calcium 8.9 mg/dl (8.6-10.3); Creatinine Clr Calc Pharmacy 38.6 ml/min; Est GFR (African American) 45.6 ml/min; Est GFR (Non-African American) 39.3 ml/min; Potassium 4.4 mmol/L (3.5-5.1)
[2023-01-25] MEDS: AMIODARONE 200 MG TAB PO SCH (08:20)
[2023-01-25] MEDS: amLODIPine BESYLATE 5 MG TAB PO SCH (08:20)
[2023-01-25] MEDS: ASPIRIN 81 MG ECTAB PO SCH (08:20)
[2023-01-25] MEDS: LOSARTAN POTASSIUM 50 MG TAB PO SCH (08:20)
[2023-01-25] MEDS: PANTOprazole 40 MG TAB PO SCH (08:20)
[2023-01-25] MEDS: EZETIMIBE 10 MG TAB PO SCH (08:20)
[2023-01-25] MEDS: METOPROLOL SUCC 25MG EXT REL TAB PO SCH (08:20)
[2023-01-25] MEDS: UMECLIDINIUM BROMIDE 62.5MCG/BLISTER 7 PUFFS/INHALER INH SCH (08:21)
[2023-01-25] MEDS: FLUTICASONE/VILANTEROL 100/25MCG 14 PUFFS/INHALER INH SCH (08:21)
[2023-01-25] MEDS: APIXABAN 2.5 MG TAB PO SCH (08:21)
--- NOTE | 2023-01-25 10:33 | Hospitalist Progress Note ---
Date of Service January 25, 2023 Assessment & Plan (1) CHF (congestive heart failure): Plan: patient is a previous history of diastolic congestive heart failure but he had a TAVR to help treat this. He subsequently also has atrial fibrillation and this may be rate related diastolic heart failure. He presents with hypoxemia chest x-ray changes consistent with fluid overload he was given IV diuretics in the emergency department. He is typically sees Dr. Ritchie. The patient will be observed in our facility for continued diuresis given his chronic kidney disease stage [address] Ritchie and possible pacemaker adjustment echo pending (2) Paroxysmal atrial fibrillation: Plan: history of paroxysmal A-fib typically anticoagulated with Eliquis, rate controlled with metoprolol recently added amiodarone and has a permanent pacemaker (3) COPD (chronic obstructive pulmonary disease): Plan: reportedly by history patient has COPD has not establish care with pulmonary medicine at this point he takes tiotropium, budesonide/formoterol, and rescue inhaler of albuterol will have nocturnal oxymetry (4) Thalamic stroke: Plan: patient has a history of a thalamic stroke in 2021 with no residual deficits unclear whether this is embolic from his atrial fibrillation (5) Status post transcatheter aortic valve replacement: Admission and Anticipated Discharge Date Admission Date: January 24, 2023 Results & Data Results & Data Vital Signs (Past 12 Hours) Vital Signs Temp Pulse Pulse Pulse Resp BP Pulse Ox 01/25/23 08:00 80 01/25/23 08:00 01/25/23 08:00 97.9 F 80 20 149/83 H 95 01/25/23 05:10 76 01/25/23 03:00 97.5 F L 84 16 168/71 H 95 01/25/23 02:20 83 18 98 01/25/23 02:19 83 01/25/23 01:15 80 01/24/23 23:00 98.2 F 81 18 144/83 H 96 Pulse Ox O2 Del Method O2 Del Method 01/25/23 08:00 01/25/23 08:00 Room Air 01/25/23 08:00 Room Air 01/25/23 05:10 97 Room Air 01/25/23 03:00 Room Air 01/25/23 02:20 Room Air 01/25/23 02:19 98 Room Air 01/25/23 01:15 97 Room Air 01/24/23 23:00 Room Air PG Care Time/CCT Total # of Minutes Spent Total Time Spent with Patient: Total time spent is greater than 50% in coordination of care (as documented) at patient's floor/unit and/or counseling patient: Coding Diagnoses CHF (congestive heart failure) I50.9 Paroxysmal atrial fibrillation I48.0 COPD (chronic obstructive pulmonary disease) J44.9 Thalamic stroke I63.81 Status post transcatheter aortic valve replacement Z95.2
--- NOTE | 2023-01-25 14:15 | Discharge Summary ---
Date of Service January 25, 2023 Admission HPI Per Admitting Provider 87-year-old male with a history of COPD, CVA atrial fibrillation, history of TAVR and previous history of diastolic CHF who presents due to concern for increased nocturnal dyspnea over the course of the last month with limited ability to sleep. Patient does have MDIs at home, does not use home oxygen. He is not routinely followed by pulmonology for COPD although was recently referred to them and has an appointment next month. He denies any recent fevers, chills, or URI symptoms. He states he has had increased cough but no change in sputum. He denies nausea, vomiting, diarrhea. He follows with Dr. Ritchie for cardiology and was recently started on amiodarone. He is anticoagulated and has been taking this regularly. has a pulse oximeter at home and states he will began complaining of difficulty breathing overnight and she has checked his pulse ox with this. She states on Monday night with attempts at sleeping he dropped to 81%. He was also recently started on Lasix for his lower extremity edema. He was given lasix in the ER. Principal Diagnosis acute dyspnea suspect COPD exacerbation acute on chronic diastolic heart failure continue Lasix therapy Discharge Exam patient awake alert he has good air movement Discharge Data Allergies Allergy/AdvReac Type Severity Reaction Status Date / Time cilostazol AdvReac Mild increased Verified 01/18/23 09:53 heartrate Consultations 01/24/23 07:20 ED Decision to Admit Stat Hospital Course (1) CHF (congestive heart failure): patient is a previous history of diastolic congestive heart failure but he had a TAVR to help treat this. He subsequently also has atrial fibrillation and this may be rate related diastolic heart failure. He presents with hypoxemia chest x-ray changes consistent with fluid overload he was given IV diuretics in the emergency department. He is typically sees Dr. Blessing Blancas's office. 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 and upcoming outpatient appointment with pulmonary medicine in 1 week chronic kidney disease stage III stable echo pending (2) Paroxysmal atrial fibrillation: history of paroxysmal A-fib typically anticoagulated with Eliquis, rate controlled with metoprolol recently added amiodarone and has a permanent pacemaker (3) COPD (chronic obstructive pulmonary disease): reportedly by history patient has COPD has not establish care with pulmonary medicine at this point he takes tiotropium, budesonide/formoterol, and rescue inhaler of albuterol have home on DuoNebs at this time as needed as the patient felt admit the most improvement for him (4) Thalamic stroke: patient has a history of a thalamic stroke in 2021 with no residual deficits unclear whether this is embolic from his atrial fibrillation (5) Status post transcatheter aortic valve replacement: Total Time Total Time Spent Total Time Spent (In Minutes): it required greater than 30 minutes to prepare this patient for discharge Discharge Plan Discharge Items Patient Disposition: Home - Self-Care Reason For Visit: ACUTE DIASTOLIC HF Discharge Diagnosis: diastolic heart failure resolved Activity: Resume your previous activity Non-emergency contact: Primary Care Provider Call non-emergency contact if: your symptoms worsen Follow-up/Referrals: Kirit Ritchie DO [Physician] - Akua Caldera MD [Primary Care Provider] - Diet: Low Sodium (2gm) Addtl Attending Provider Instructions: please [facility] have a low salt diet and continue taking your lasix Pending Studies at Discharge: No Stand-Alone Forms: My [employer], Smoking Cessation Medications and DC Order Prescriptions: New ipratropium-albuterol 0.5 mg-3 mg(2.5 mg base)/3 mL solution for nebulization 3 ml inhalation Q8H PRN (Reason: wheezing) Qty: 90 0RF Continued omeprazole 20 mg capsule,delayed release(DR/EC) 20 mg PO DAILY Qty: 90 3RF amlodipine 2.5 mg tablet 2.5 mg PO DAILY 90 Days Qty: 90 3RF Rx Instructions: Take in addition to 5mg tablet, totaling 7.5mg daily amlodipine 5 mg tablet 5 mg PO DAILY Qty: 90 3RF Rx Instructions: Take in addition to 2.5mg tablet totaling 7.5mg daily Symbicort 80-4.5 mcg/actuation HFA aerosol inhaler 2 puff INHALATION BID Qty: 13.8 5RF tamsulosin 0.4 mg capsule 0.4 mg PO HS Qty: 90 3RF coQ10 (ubiquinol) 200 mg capsule 200 mg PO DAILY Qty: 30 0RF ezetimibe 10 mg tablet 10 mg PO DAILY Qty: 30 2RF (DME) [facility] Spacer See Rx Instructions .Route Qty: 2 0RF Rx Instructions: As directed cholecalciferol (vitamin D3) 25 mcg (1,000 unit) tablet 25 mcg PO DAILY Qty: 30 0RF aspirin [Essence Low Dose Aspirin] 81 mg tablet,delayed release (DR/EC) 81 mg PO DAILY Qty: 30 5RF metoprolol succinate 25 mg tablet extended release 24 hr 25 mg PO DAILY Qty: 30 2RF ferrous gluconate 324 mg (38 mg iron) Tablet 324 mg PO QPM Eliquis 5 mg Tablet 5 mg PO BID rosuvastatin 5 mg tablet 5 mg PO HS losartan 50 mg Tablet 50 mg PO DAILY Qty: 30 0RF amiodarone 200 mg tablet See Rx Instructions .ROUTE .COMPLEX Rx Instructions: FOR THE FIRST WEEK- 1 TAB PO BID WITH FOOD, THEN 1 TAB DAILY WITH FOOD furosemide 20 mg tablet 20 mg PO DAILY Spiriva Respimat 1.25 mcg/actuation mist 2 puff inhalation DAILY Discharge Orders: Discharge Order (Routine); Ordered 01/25/23 Ordered By: Franck Dietrich Admission Data Admit Date/Time: 01/24/23 07:43 Attending Provider: Franck Dietrich Admit Provider: Franck Dietrich Primary Care Provider: Akua Caldera Other Providers: Franck Dietrich Coding Level of Care Code 44518 INP/OBS DISCH >30 MIN Diagnoses CHF (congestive heart failure) I50.9 Paroxysmal atrial fibrillation I48.0 COPD (chronic obstructive pulmonary disease) J44.9 Thalamic stroke I63.81 Status post transcatheter aortic valve replacement Z95.2
--- NOTE | 2023-01-25 21:40 | XCELERA ---
[id number]
== END 2023-01-25 15:01 | disposition home or self-care (01) ==
LOC: 2E 04:28 → ED 04:28 → 2E 09:06